=== PATIENT | female | born 1990 | race Caucasian/White ===

== ENCOUNTER 2019-04-03 18:30 | Emergency (ER) | payer OTHER, MEDICAID, SELFPAY ==
[2019-04-03 18:32] VITALS: BP 110/72; PULSE 98; RESP 14; TEMP 36.7; O2SAT 96
--- NOTE | 2019-04-03 18:57 | PC.NURSE ---
small insect bite w/ raised area < 0.5 cm round on left inner thigh. + increased vascular markings but no redness extending from insect bite. Denies pain / chills.
--- NOTE | 2019-04-03 19:14 | ED.SKABFB ---
HPI - Skin/Abscess/Foreign Bdy <EDWIN MontenegroBC - Last Filed: 04/03/19 21:41> General Chief complaint: Skin/Abscess/Foreign Body Stated complaint: bug bite Time Seen by Provider: 04/03/19 18:44 Source: patient Mode of arrival: ambulatory Limitations: no limitations History of Present Illness HPI narrative: The patient is a 28-year-old female nonsmoker with history of anxiety who presents with a chief complaint of an infected ?bug bite. She states she noticed a pustule on her left thigh a few days ago, and popped it. It reappeared again so she popped it again then she noted extending redness and lines of redness from the pustule site. She denies any fevers nausea vomiting or diarrhea. She has not taken anything or applied anything. She is concerned about infection. Related Data Home Medications Medication Instructions Recorded Confirmed albuterol sulfate HFA 90 2 puff INHALATION Q6H PRN 02/01/19 03/31/19 mcg/actuation aerosol inhaler bupropion HCl SR 150 mg tablet,12 150 mg PO DAILY 03/31/19 03/31/19 hr sustained-release Previous Rx's Medication Instructions Recorded diazepam 5 mg tablet 5 mg PO ONCE #1 tab 03/21/19 clonazepam 0.5 mg tablet 0.5 mg PO BID #5 tab 03/31/19 escitalopram 5 mg tablet 5 mg PO DAILY #30 tab 03/31/19 cephalexin 500 mg PO TID #30 cap 04/03/19 Allergies Allergy/AdvReac Type Severity Reaction Status Date / Time peanut Allergy Severe Anaphylaxis Verified 04/03/19 18:36 Penicillins Allergy Severe Anaphylaxis Verified 04/03/19 18:36 Review of Systems <EDWIN Montenegro - Last Filed: 04/03/19 21:41> Review of Systems GENERAL: Denies chills, fatigue, malaise, fever, sweats. HEENT: Denies sinus pain, ear pain, sore throat, difficulty swallowing, dizziness. RESPIRATORY: Denies dyspnea, cough, wheezing, hemoptysis, sputum. CARDIOVASCULAR: Denies chest pain, palpitations, orthopnea, edema, GASTROINTESTINAL: Denies nausea, vomiting, abdominal pain, diarrhea, constipation, melena. : Denies dysuria, frequency, incontinence, hematuria, urinary retention. MUSCULOSKELETAL: denies weakness, joint pain, or bony pain SKIN: See HPI NEUROLOGIC: Denies weakness, headache, numbness, change in speech, confusion, seizures, incoordination. PSYCHIATRIC: No concerning psychosocial issues. 12 point review of systems is negative except for those stated above PFSH <TRUPTI Montenegro - Last Filed: 04/03/19 21:41> Social History Smoking Status: Never smoker Exam <TRUPTI Montenegro - Last Filed: 04/03/19 21:41> Narrative Exam Narrative: GENERAL: This is a well-nourished, well-developed patient, in no acute distress HEAD: Atraumatic. Normocephalic. No temporal or scalp tenderness. EYES: Pupils equal round and reactive. Extraocular motions intact. No scleral icterus. No injection or drainage. ENT: Nose without bleeding, purulent drainage or septal hematoma. Throat without erythema, tonsillar hypertrophy or exudate. Uvula midline. Airway patent. NECK: Trachea midline. No JVD or lymphadenopathy. Supple, nontender, no meningeal signs. CARDIOVASCULAR: Regular rate and rhythm RESPIRATORY: No cough. No increased respiratory effort. No accessory muscle use. EXTREMITIES: Positive pedal pulses. BACK: Nontender without deformity or crepitance. No flank tenderness. NEURO: AOx3. Using all extremities equally. SKIN: Four mm pustule site noted medial aspect of left thigh. Surrounded by 2 cm of erythema on all sides. Three lines of extending redness extending four cm from erythema Initial Vital Signs Initial Vital Signs: Vital Signs Temperature 98.1 F 04/03/19 18:32 Pulse Rate 98 H 04/03/19 18:32 Respiratory Rate 14 04/03/19 18:32 Blood Pressure 110/72 04/03/19 18:32 Pulse Oximetry 96 04/03/19 18:32 <Alec Soni DO - Last Filed: 04/04/19 01:31> Initial Vital Signs Initial Vital Signs: Vital Signs Temperature 98.1 F 04/03/19 18:32 Pulse Rate 98 H 04/03/19 18:32 Respiratory Rate 14 04/03/19 18:32 Blood Pressure 110/72 04/03/19 18:32 Pulse Oximetry 96 04/03/19 18:32 Course <TRUPTI Montenegro - Last Filed: 04/03/19 21:41> Vital Signs - 8 hr 04/03/19 18:32 Temperature 98.1 F Pulse Rate 98 H Respiratory Rate 14 Blood Pressure 110/72 Pulse Oximetry 96 <Alec Soni DO - Last Filed: 04/04/19 01:31> Vital Signs - 8 hr 04/03/19 18:32 Temperature 98.1 F Pulse Rate 98 H Respiratory Rate 14 Blood Pressure 110/72 Pulse Oximetry 96 MDM - Skin/Abscess/Foreign Bdy <ALISON Montenegro- - Last Filed: 04/03/19 21:41> MDM Narrative Medical decision making narrative: The patient is a 28-year-old female who presents with a chief complaint of possible infection. Exam raises clinical concern for cellulitis, however she does not have any signs of systemic illness. The cell initiate treatment with cephalexin. Of note the patient states she has a penicillin allergy. However she has taken cephalexin before and states she tolerates it well. She does not use IV drugs or have diabetes. I did encourage her to follow up with primary care provider come back to emergency department for any acute concerns. Discussed monitor for fever vomiting diarrhea cetera. No questions or concerns on discharge Discharge Plan Departure Patient Disposition: Home Clinical Impression: Cellulitis Qualifiers: Site of cellulitis: extremity Site of cellulitis of extremity: lower extremity Laterality: left Qualified Code(s): L03.116 - Cellulitis of left lower limb Discharge Date/Time: 04/03/19 19:28 Interventions: ED Discharge Assessment Last Done: 04/03/19 19:27 Instructions: DI for Cellulitis -- Adult Activity Restrictions/Additional Instructions: I have given you an antibiotic for the signs of infection from your wound. Please monitor for fever diarrhea or vomiting as these are signs for worsening infection. I have chosen this antibiotic as you state that you have tolerated it well before. Be aware that people who are allergic to amoxicillin can be allergic to the medication as well. If you have any signs of allergic reaction, stop use immediately. Come back to the emergency department for any acute concerns such as allergic reaction, chest pain shortness of breath etc Prescriptions: New cephalexin 500 mg capsule 500 mg PO TID Qty: 30 RF: 0 No Action diazepam [Valium] 5 mg tablet 5 mg PO ONCE Qty: 1 RF: 0 bupropion HCl [Wellbutrin SR] 150 mg tablet sustained-release 12 hr 150 mg PO DAILY RF: 0 clonazepam 0.5 mg tablet 0.5 mg PO BID Qty: 5 RF: 0 escitalopram oxalate [Lexapro] 5 mg tablet 5 mg PO DAILY Qty: 30 RF: 0 albuterol sulfate 90 mcg/actuation HFA aerosol inhaler 2 puff INHALATION Q6H PRNRF: 0 Referrals: Rudy Brown MD [Primary Care Provider] - <Alec Soni DO - Last Filed: 04/04/19 01:31> Cosign ED Attending Dinoature Attestation: I was immediately available in the department for consultation. Documentation has been reviewed. I agree with assessment and plan.
== END 2019-04-03 19:28 | disposition home or self-care (01) ==
PROVIDERS: Emergency Provider Nurse Practitioner Family; PCP Family Medicine
DX: L03.116 Cellulitis of left lower limb (principal)
CPT/HCPCS: 99282; 99283

== ENCOUNTER 2019-04-27 11:36 | Emergency (ER) | payer OTHER, MEDICAID, SELFPAY ==
[2019-04-27 11:51] VITALS: BP 109/77; PULSE 106; RESP 20; TEMP 36.8; O2SAT 98; BMI 21.9
--- NOTE | 2019-04-27 12:58 | ED_ITS ---
HPI - Back Pain/Injury General Chief Complaint: Back Pain/Injury Stated Complaint: lower back pain from lifting a bike Time Seen by Provider: 04/27/19 12:08 Source: patient and family () Mode of arrival: ambulatory Limitations: no limitations History of Present Illness HPI Narrative: 28-year-old female comes emergency department with complaint of low back pain radiating down her right buttock into her leg. Patient states that she lifted her son's bike, she states it probably weighs 30 lb. She states she lifted with proper form. Put on the back of their car. Immediately had pain went to a squatting position and then had to sit down. She states the pain is sort of the right side of her sacrum, and radiates into the buttock and lower leg. She has a little bit of pain on the right side of her back. Patient states no weakness, no numbness. Standing is more comfortable than sitting. Sitting directly is more uncomfortable. Patient has had back issues in the past but mostly upper back. She normally sees a chiropractor. She states she has not had a lot issues with her lower back. She states otherwise healthy, denies any surgeries. Denies any allergies to medications. She does not want any altering medications today in the department but does ask for a prescription. Related Data Home Medications Medication Instructions Recorded Confirmed albuterol sulfate HFA 90 2 puff INHALATION Q6H PRN 02/01/19 03/31/19 mcg/actuation aerosol inhaler bupropion HCl SR 150 mg tablet,12 150 mg PO DAILY 03/31/19 04/27/19 hr sustained-release epinephrine 0.3 ml IM PRN PRN 04/27/19 04/27/19 Previous Rx's Medication Instructions Recorded diazepam 5 mg tablet 5 mg PO ONCE #1 tab 03/21/19 clonazepam 0.5 mg tablet 0.5 mg PO BID #5 tab 03/31/19 escitalopram 5 mg tablet 5 mg PO DAILY #30 tab 03/31/19 diazepam [Valium] 5 mg PO TID PRN #10 tab 04/27/19 hydrocodone-acetaminophen [[place]] 1 tab PO Q6H PRN #10 tab 04/27/19 meloxicam [Mobic] 7.5 mg PO BID #20 tab 04/27/19 Allergies Allergy/AdvReac Type Severity Reaction Status Date / Time peanut Allergy Severe Anaphylaxis Verified 04/03/19 18:36 Penicillins Allergy Severe Anaphylaxis Verified 04/03/19 18:36 Review of Systems Review of Systems ROS Unobtainable: All systems reviewed & are unremarkable except as noted in HPI and below Constitutional Denies chills, Denies fever(s), Denies lethargy and Denies weakness ENT Ears, Nose, Mouth, and Throat: Denies neck pain Musculoskeletal Reports as per HPI, Reports back pain, Reports limited range of motion, Denies neck pain, Denies numbness, Denies stiffness and Denies tingling Neurologic Denies numbness, Denies tingling and Denies weakness PFSH Social History Smoking Status: Never smoker Social History Smoking Status: Never smoker Exam Narrative Exam Narrative: GENERAL: Alert and oriented x three, well-nourished, well- appearing female in [id number] distress. HEENT: Head normocephalic, atraumatic, EOMI, pupils reactive, face symmetric, moist mucous membranes NECK: Supple, full range of motion CARDIOVASCULAR: Regular rate and rhythm without murmurs, rubs or gallops. RESPIRATORY: Breath sounds equal bilaterally, no wheezes rales or rhonchi. ABDOMEN: Soft, nontender. Normoactive bowel sounds all 4 quadrants. No guarding or rebound, rigidity, no mass : No CVA tenderness EXTREMITIES: Normal range of motion, no clubbing or edema. Neurovascularly intact NEUROLOGICAL: Cranial nerves II through XII grossly intact. Moving all extremities SKIN: Warm, dry, no petechiae, no rashes or lesions. BACK: No cervical, thoracic or lumbar vertebral point tenderness. Patient has decreased range of motion. Patient's gait is antalgic. Rectal exam is deferred. Muscle strength is 5/5 in lower extremities. Dorsalis pedis and tibialis pulses are 2+ and lower extremities. Sensation is intact in the lower extremities. Initial Vital Signs Initial Vital Signs: Vital Signs Temperature 98.2 F 04/27/19 11:51 Pulse Rate 106 H 04/27/19 11:51 Respiratory Rate 04/27/19 11:51 Blood Pressure 109/77 04/27/19 11:51 Pulse Oximetry 98 04/27/19 11:51 Course Orders Ordered: Discontinued Medications Diazepam (Valium) 5 mg PO NOW ONE Stop: 04/27/19 13:41 Last Admin: 04/27/19 13:44 Dose: 5 mg Ketorolac Tromethamine (Toradol) 60 mg IM NOW ONE Stop: 04/27/19 12:19 Last Admin: 04/27/19 13:04 Dose: 60 mg Morphine Sulfate (Morphine) 4 mg IM NOW ONE Stop: 04/27/19 15:06 Last Admin: 04/27/19 15:20 Dose: 4 mg Ondansetron HCl (Zofran Odt) 4 mg SL NOW ONE Stop: 04/27/19 13:28 Last Admin: 04/27/19 13:29 Dose: 4 mg Vital Signs - 8 hr 04/27/19 11:51 04/27/19 15:33 Temperature 98.2 F Pulse Rate 106 H 86 Respiratory Rate 20 19 Blood Pressure 109/77 Blood Pressure [Left Arm] 107/72 Pulse Oximetry 98 99 MDM - Back Pain/Injury MDM Narrative Medical decision making narrative: Discussed with patient she had acute injury lifting the bike that is likely the cause of her back pain. We discussed potential causes. She has no red flag symptoms indicating the need for imaging at this time. Discussed will do a dose of Toradol, plan for pain control as well some muscle relaxant. If she is not improving she is to return to follow up with PCP, patient is to return here or closest ER if any red flag symptoms. Patient had only mild improvement with Toradol and Valium. Given Morphine IM and feels much better. Discharge Plan Departure Patient Disposition: Home Clinical Impression: Back pain Qualifiers: Back pain location: low back pain Chronicity: acute Back pain laterality: right Sciatica presence: with sciatica Discharge Date/Time: 04/27/19 15:58 Interventions: ED Discharge Assessment Last Done: 04/27/19 15:52 Instructions: DI for Back Pain With Sciatica Activity Restrictions/Additional Instructions: Follow-up with primary care in the next 7-10 days if symptoms are not improved. You may take pain medication/mobic 1 tablet every 12 hours as needed. You may also take Tylenol up to a 1000 mg every 8 hours with this medication. You may take the muscle relaxant with either of these medications, this medication will make you sleepy do not drive, perform has activities or make any major decisions while taking it. Return to the emergency department for fevers greater than 100.4 F new weakness, numbness, loss of bowel or bladder control, rapidly worsening pain, passing out, new chest pain, shortness of breath or abdominal pain. Prescriptions: New diazepam [Valium] 5 mg tablet 5 mg PO TID PRN (Reason: muscle spasm) Qty: 10 RF: 0 meloxicam [Mobic] 7.5 mg tablet 7.5 mg PO BID Qty: 20 RF: 0 hydrocodone-acetaminophen [[place]] 5-325 mg tablet 1 tab PO Q6H PRN (Reason: pain) Qty: 10 RF: 0 No Action diazepam [Valium] 5 mg tablet 5 mg PO ONCE Qty: 1 RF: 0 bupropion HCl [Wellbutrin SR] 150 mg tablet sustained-release 12 hr 150 mg PO DAILY RF: 0 clonazepam 0.5 mg tablet 0.5 mg PO BID Qty: 5 RF: 0 escitalopram oxalate [Lexapro] 5 mg tablet 5 mg PO DAILY Qty: 30 RF: 0 epinephrine 0.3 mg/0.3 mL auto-injector 0.3 ml IM PRN PRN (Reason: Allergic Reaction) RF: 0 albuterol sulfate 90 mcg/actuation HFA aerosol inhaler 2 puff INHALATION Q6H PRN (Reason: Shortness Of Breath) RF: 0 Referrals: Rudy Brown MD [Primary Care Provider] -
[2019-04-27] MEDS: KETOROLAC 60 MG/2 ML VIAL IM (13:04)
[2019-04-27] MEDS: ONDANSETRON 4 MG ODT SL (13:29)
[2019-04-27] MEDS: diazePAM 5 MG TABLET PO (13:44)
[2019-04-27] MEDS: MORPHINE 4 MG/ML INJ IM (15:20)
[2019-04-27 15:33] VITALS: BP 107/72; PULSE 86; RESP 19; O2SAT 99
== END 2019-04-27 15:58 | disposition home or self-care (01) ==
PROVIDERS: Emergency Provider Emergency Medicine; PCP Family Medicine
DX: M54.9 Dorsalgia, unspecified (principal); X50.9XXA Other and unspecified overexertion or strenuous movements or postures, initial encounter
CPT/HCPCS: 96372; 99282; 99283; J1885; J2270

== ENCOUNTER → 2020-08-13 16:30 | Outpatient (CLI) | payer OTHER, MEDICAID, SELFPAY ==
[2020-08-13 18:06] LABS: Add Manual Diff / Slide Review NO; Basophils Absolute Auto 100 /uL (0-100); Basophils Percent Auto 0.8 % (0-2); Eosinophils Absolute Auto 200 /uL (0-450); Eosinophils Percent Auto 3.5 % (2-4); Hematocrit 38.8 % (36-46); Hemoglobin 13.4 g/dL (12.0-16.0); Lymphocytes Absolute Auto 2300 /uL (1100-4500); Lymphocytes Percent Auto 39.4 % (25-40); Mean Corpuscular HGB Conc 34.5 % (30-36); Mean Corpuscular Hemoglobin 29.8 PG (26-34); Mean Corpuscular Volume 86.5 fL (80-100); Monocytes Absolute Auto 500 /uL (0-900); Monocytes Percent Auto 8.9 % (3-14); Neutrophils Absolute Auto 2800 /uL (1500-7000); Neutrophils Percent Auto 47.4 % (50-75); Platelet Count 168 X10^3/uL (150-400); Red Blood Cell Count 4.49 X10^6/uL (4.0-5.2); Red Cell Distribution Width 12.6 % (11.6-14.8)
[2020-08-13 18:41] LABS: TSH w/ Reflex to FT4 0.81 uIU/mL (0.47-4.68)
== END ==
PROVIDERS: PCP Registered Nurse Diabetes Educator; Referring Provider Registered Nurse Diabetes Educator; Visit Provider Registered Nurse Diabetes Educator
DX: R53.83 Other fatigue (principal)
CPT/HCPCS: 36415; 84443; 85025

== ENCOUNTER 2021-07-16 16:50 | Emergency (ER) | payer OTHER, MEDICAID, SELFPAY ==
[2021-07-16 16:59] VITALS: BP 132/92; PULSE 122; RESP 20; TEMP 37.1; O2SAT 99; BMI 23.0
--- NOTE | 2021-07-16 17:03 | DI.RAD.S_ITS ---
PROCEDURE: XR CHEST 1V INDICATIONS: cough/congestion TECHNIQUE: One view of the chest was acquired. COMPARISON: None. FINDINGS: Surgical changes and devices: None. Lungs and pleura: Lungs are clear. No pleural effusions or pneumothorax. Mediastinum: Mediastinal contours appear normal. Heart size is normal. Bones and chest wall: No suspicious bony lesions. Overlying soft tissues appear unremarkable. Convex right thoracic scoliosis noted., mild. IMPRESSION: No acute cardiopulmonary findings Approved by: Ced Higuera M.D. on 07/16/2021 at 17:42
[2021-07-16 17:29] LABS: COVID19 -Nasal RAPID POSITIVE (Negative)
[2021-07-16 17:38] LABS: Appearance Urine UA CLEAR; Bilirubin Urine UA NEGATIVE (NEGATIVE); Color Urine UA YELLOW; Glucose Urine UA NEGATIVE (Negative); Ketones Urine UA NEGATIVE (NEGATIVE); Leukocyte Esterase Urine UA TRACE (NEGATIVE); Nitrite Urine UA NEGATIVE (Negative); Occult Blood Urine UA NEGATIVE (Negative); Protein Urine UA NEGATIVE (Negative); Specific Gravity Urine UA 1.015 (1.000-1.035); Urobilinogen Urine UA 0.2 E.U./dL (0.2)
[2021-07-16 17:42] LABS: Pregnancy Test Urine Negative (Negative)
[2021-07-16] MEDS: HYDROCODONE/ACET 5/325 TABLET 1 TAB PO (17:50)
[2021-07-16 17:58] LABS: Bacteria Urine Moderate (10-30); Culture Indicated Urine Cult Not Indicated; RBC Urine 0-1/HPF (0-5/HPF); Squamous Epithelial Cell Urine 5-10 /HPF (0-5/HPF); WBC Urine 1-5/HPF (0-5/HPF)
[2021-07-16 19:06] VITALS: PULSE 87; O2SAT 97
--- NOTE | 2021-07-16 19:47 | ED_ITS ---
HPI - URI/Sore Throat <Arron Oscar PA-C - Last Filed: 07/16/21 19:53> General Chief Complaint: Upper Respiratory Symptoms Stated Complaint: whole body hurts Time Seen by Provider: 07/16/21 17:38 History of Present Illness HPI Narrative: 30-year-old female with depression, anxiety presents to the ED with 3 days of all over body aches. Patient denies fever, chills, headaches, chest pain, shortness of breath, nausea, vomiting, abdominal pain, dysuria, lightheadedness, syncope, dizziness. Patient is unvaccinated for COVID-19. Patient denies exposure to COVID-19 exposure. Patient states that her body pain is refractive to ibuprofen. Related Data Home Medications Medication Instructions Recorded Confirmed albuterol sulfate 90 mcg/actuation 2 puff INHALATION Q6H PRN 02/01/19 08/13/20 aerosol inhaler epinephrine 0.3 mg/0.3 mL 0.3 ml IM PRN PRN 04/27/19 08/13/20 injection, auto-injector IUD INTRAUTERINE 05/23/20 08/13/20 Previous Rx's Medication Instructions Recorded venlafaxine 37.5 mg 37.5 mg PO DAILY #30 cap 08/13/20 capsule,extended release 24 hr Allergies Allergy/AdvReac Type Severity Reaction Status Date / Time peanut Allergy Severe Anaphylaxis Verified 08/13/20 15:53 Penicillins Allergy Severe Anaphylaxis Verified 08/13/20 15:53 Review of Systems <SOFIE Sosa Last Filed: 07/16/21 19:53> Constitutional Constitutional: Reports body ache(s), Denies chills, Denies fatigue, Denies fever(s), Denies frequent falls, Denies lethargy and Denies weakness Eyes Eyes: Denies change in vision, Denies eye discharge, Denies irritation and Denies loss of vision ENT Ears, Nose, Mouth, and Throat: Denies change in voice, Denies dizziness, Denies neck pain, Denies sore throat and Denies throat swelling Cardiovascular Cardiovascular: Denies chest pain, Denies irregular heart rhythm, Denies lightheadedness, Denies palpitations, Denies dyspnea, Denies dyspnea on exertion and Denies orthopnea Respiratory Respiratory: Denies cough, Denies dyspnea, Denies dyspnea on exertion and Denies wheezing Gastrointestinal Gastrointestinal: Denies abdominal pain, Denies change in bowel habits, Denies diarrhea, Denies nausea and Denies vomiting Musculoskeletal Musculoskeletal: Denies neck pain and Denies numbness Integumentary/Breasts Skin/Breast: Denies pruritus, Denies erythema, Denies rash and Denies wounds Neurologic Neurologic: Denies behavioral changes, Denies confusion, Denies dizziness, Den ies frequent falls, Denies loss of vision, Denies numbness and Denies weakness Psychiatric Psychiatric: Denies anxiety, Denies behavioral changes, Denies confusion, Denies depression, Denies homicidal ideation and Denies suicidal ideation Endocrine Endocrine: Denies fatigue, Denies flushing and Denies palpitations Hematologic/Lymphatic Hematologic/Lymphatic: Denies easy bruising Allergic/Immunologic Allergic/Immunologic: Denies urticaria, Denies throat swelling and Denies wheezing Patient History <Arron Oscar PA-C - Last Filed: 07/16/21 19:53> Medical History Anxiety Depression Social History Smoking Status: Never smoker Smoking Status: Never smoker alcohol intake frequency: 0-2 drinks per day Substance Use Type: does not use Exam <Arron Oscar PA-C - Last Filed: 07/16/21 19:53> Initial Vital Signs Initial Vital Signs: Vital Signs Temperature 98.8 F 07/16/21 16:59 Pulse Rate 122 H 07/16/21 16:59 Respiratory Rate 20 07/16/21 16:59 Blood Pressure 132/92 H 07/16/21 16:59 Pulse Oximetry 99 07/16/21 16:59 Const General: cooperative [facility] Head: normocephalic and atraumatic Ears: external ears normal and TM's normal bilaterally Nose: external nose normal and No nasal discharge Face and sinus: sinuses nontender, face symmetric, no sinus tenderness and No dry mucous membranes Mouth: oral mucosae normal and moist mucous membranes Teeth and gingiva: dentition normal Throat: tonsils normal and uvula midline Eyes General: appearance normal, both eyes and all related structures Eyelids: eyelids normal Conjunctivae: conjunctivae normal Sclera: sclerae normal Pupils: PERRL EOM: EOM intact bilaterally Neck Neck: normal visual inspection, trachea midline, No lymphadenopathy, No midline deformity and No JVD Lymphatic: No lymphedema Chest Chest: normal inspection of the chest Resp Effort & Inspection: normal respiratory effort, able to speak in complete sentences, no respiratory distress and no use of accessory muscles Auscultation: clear to auscultation bilaterally, no rales, no rhonchi and no wheezes Cardio Rate: regular rate Rhythm: regular rhythm Heart Sounds: no click, no gallops, no murmurs and no rubs Pulses: normal peripheral pulses GI Inspection: non-distended Palpation: soft, no hepatosplenomegaly, No guarding, No pulsatile mass and No tender Auscultation: normal bowel sounds Back/Spine/Pelvis Back: No CVA tenderness Cervical Spine: cervical ROM normal and No pain with cervical ROM Thoracic/Lumbar Spine: thoracic and lumbar spine normal to inspection Skin General: no rashes or lesions noted, No jaundice and No petechiae Neuro General: patient alert, patient oriented x3, gait normal and no focal motor deficits Speech: speech normal Extrem General: full ROM, no clubbing, cyanosis or edema, no pedal edema and no calf tenderness Psych Appearance: well kempt Mental Status: mental status grossly normal Attitude: cooperative Thought Content: normal and suicidality Judgment: judgment good <Esme Maciel MD - Last Filed: 07/22/21 05:46> Initial Vital Signs Initial Vital Signs: Vital Signs Temperature 98.8 F 07/16/21 16:59 Pulse Rate 122 H 07/16/21 16:59 Respiratory Rate 20 07/16/21 16:59 Blood Pressure 132/92 H 07/16/21 16:59 Pulse Oximetry 99 07/16/21 16:59 Course <Arron Oscar PA-C - Last Filed: 07/16/21 19:53> Course Course Narrative: Patient's symptoms markedly improved with Lane. Patient was counseled regarding COVID-19 infection, isolation. Discharge home with ED return precautions. Orders Ordered: Discontinued Medications Hydrocodone Bitart/Acetaminophen (Hydrocodone/Acet 5/325 Tablet) 1 tab PO NOW ONE Stop: 07/16/21 17:41 Last Admin: 07/16/21 17:50 Dose: 1 tab Documented by: ELA Vital Signs Vital signs: Vital Signs - 8 hr 07/16/21 16:59 07/16/21 19:06 Temperature 98.8 F Pulse Rate 122 H 87 Respiratory Rate 20 Blood Pressure 132/92 H Pulse Oximetry 99 97 <Esme Maciel MD - Last Filed: 07/22/21 05:46> Orders Ordered: Discontinued Medications Hydrocodone Bitart/Acetaminophen (Hydrocodone/Acet 5/325 Tablet) 1 tab PO NOW ONE Stop: 07/16/21 17:41 Last Admin: 07/16/21 17:50 Dose: 1 tab Documented by: ELA Vital Signs Vital signs: Vital Signs - 8 hr 07/16/21 16:59 07/16/21 19:06 Temperature 98.8 F Pulse Rate 122 H 87 Respiratory Rate 20 Blood Pressure 132/92 H Pulse Oximetry 99 97 MDM - URI/Sore Throat <Arron Oscar PA-C - Last Filed: 07/16/21 19:53> Medical Records Attestation: I reviewed the patient's medical records. Lab Data Attestation: I reviewed the patient's lab results. Lab results narrative: COVID-19 positive. Negative HCG, negative UA Labs: Lab Results 07/16/21 07/16/21 07/16/21 Range/Units 17:04 17:08 17:08 Urine Color Yellow Urine Appearance Clear Urine pH 6.0 (4.5-8.0) Ur Specific [place] 1.015 (1.000-1.035) Urine Protein Negative (Negative) Urine Glucose (UA) Negative (Negative) g/dL Urine Ketones Negative (NEGATIVE) Urine Occult Blood Negative (Negative) Urine Nitrate Negative (Negative) Urine Bilirubin Negative (NEGATIVE) Urine Urobilinogen 0.2 (0.2) E.U./dL Ur Leukocyte Esterase Trace H (NEGATIVE) Urine RBC 0-1/hpf (0-5/HPF) Urine WBC 1-5/hpf (0-5/HPF) Ur Squamous Epith Cells 5-10 /hpf H (0-5/HPF) Urine Bacteria Moderate (10-30) H (None) Ur Culture Indicated? Cult not indicated Urine Test Negative (Negative) SARS-CoV-2 (PCR) Positive H (Negative) Imaging Data Chest x-ray: Radiologist's Impression: PROCEDURE:? XR CHEST 1V ? INDICATIONS:? cough/congestion ? TECHNIQUE:? One view of the chest was acquired.? ? COMPARISON:? None. ? FINDINGS:? ? Surgical changes and devices:? None.? ? Lungs and pleura:? Lungs are clear.? No pleural effusions or pneumothorax.? ? Mediastinum:? Mediastinal contours appear normal.? Heart size is normal.? ? Bones and chest wall:? No suspicious bony lesions.? Overlying soft tissues appear unremarkable.? Convex right thoracic scoliosis noted., mild. ? IMPRESSION:? No acute cardiopulmonary findings ? ? ? Approved by: Ced Higuera M.D. on 07/16/2021 at 17:42? MDM Narrative Medical decision making narrative: 30-year-old female with depression, anxiety presents to the ED with 3 days of all over body aches. Concern for COVID 19 infection versus other viral syndrome. Will order COVID-19 test. Will treat pain with Lane. Will reassess. Dispo home with ED return precautions. <Esme Maciel MD - Last Filed: 07/22/21 05:46> Lab Data Labs: Lab Results 07/16/21 07/16/21 07/16/21 Range/Units 17:04 17:08 17:08 Urine Color Yellow Urine Appearance Clear Urine pH 6.0 (4.5-8.0) Ur Specific [place] 1.015 (1.000-1.035) Urine Protein Negative (Negative) Urine Glucose (UA) Negative (Negative) g/dL Urine Ketones Negative (NEGATIVE) Urine Occult Blood Negative (Negative) Urine Nitrate Negative (Negative) Urine Bilirubin Negative (NEGATIVE) Urine Urobilinogen 0.2 (0.2) E.U./dL Ur Leukocyte Esterase Trace H (NEGATIVE) Urine RBC 0-1/hpf (0-5/HPF) Urine WBC 1-5/hpf (0-5/HPF) Ur Squamous Epith Cells 5-10 /hpf H (0-5/HPF) Urine Bacteria Moderate (10-30) H (None) Ur Culture Indicated? Cult not indicated Urine Test Negative (Negative) SARS-CoV-2 (PCR) Positive H (Negative) Discharge Plan Departure Patient Disposition: Home Clinical Impression: COVID-19 Instructions: DI for COVID-19 (Suspected or Confirmed ), Coronavirus Disease 2019, Can COVID-19 be prevented? Activity Restrictions/Additional Instructions: You were diagnosed positive for the COVID-19 infection in the ED today. Your vital signs are stable and you can continue to take ibuprofen or Tylenol for your symptoms. Continue to mask and isolate for 10-14 days. Return to the ED if worsening symptoms including shortness of breath, chest pain. Prescriptions: No Action IUD intrauterine RF: 0 venlafaxine 37.5 mg capsule,extended release 24hr 37.5 mg PO DAILY Qty: 30 RF: 1 epinephrine 0.3 mg/0.3 mL auto-injector 0.3 ml IM PRN PRN (Reason: Allergic Reaction) RF: 0 albuterol sulfate 90 mcg/actuation HFA aerosol inhaler 2 puff INHALATION Q6H PRN (Reason: Shortness Of Breath) RF: 0 Referrals: Rudy Brown MD [Primary Care Provider] - <Esme Maciel MD - Last Filed: 07/22/21 05:46> Cosign ED Attending Cosdongature Attestation: I was immediately available in the department for consultation throughout this patient's visit. I agree with documentation as above. Esme Maciel MD
== END 2021-07-16 19:06 | disposition home or self-care (01) ==
PROVIDERS: Emergency Medicine; Emergency Provider Student in an Organized Health Care Education/Training Program; PCP Family Medicine
DX: U07.1 COVID-19 (principal)
CPT/HCPCS: 71045; 81001; 81025; 87635; 99283; C9803

== ENCOUNTER 2023-06-30 08:42 | Emergency (ER) | payer OTHER, MEDICAID, SELFPAY ==
[2023-06-30] VITALS (7 sets, daily range): BP systolic 106–138; BP diastolic 66–79; PULSE 73–101; RESP 18; TEMP 36.7; O2SAT 99–100; BMI 20.3
--- NOTE | 2023-06-30 09:07 | ED_ITS ---
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 She had been feeling fine until this morning when she felt nauseated and flushed with an elevated heart rate upon standing. She denies any vaginal bleeding or discharge. She has no runny nose, sore throat or cough. She denies chest pain or shortness of breath. She denies abdominal pain but has some cramping in her low back. Related Data Home Medications Medication Instructions Recorded Confirmed albuterol sulfate 90 mcg/actuation 2 puff inhalation Q6H PRN 02/01/19 08/13/20 aerosol inhaler Shortness Of Breath epinephrine 0.3 mg/0.3 mL 0.3 ml IM PRN PRN Allergic Reaction 04/27/19 08/13/20 injection, auto-injector IUD intrauterine 05/23/20 08/13/20 Previous Rx's Medication Instructions Recorded venlafaxine 37.5 mg 37.5 mg PO DAILY #30 caps 08/13/20 capsule,extended release 24 hr Allergies Allergy/AdvReac Type Severity Reaction Status Date / Time peanut Allergy Severe Anaphylaxis Verified 08/13/20 15:53 Penicillins Allergy Severe Anaphylaxis Verified 08/13/20 15:53 Review of Systems Review of Systems Narrative: GENERAL: See HPI HEENT: Denies sinus pain, ear pain, sore throat, difficulty swallowing, dizzin ess. RESPIRATORY: Denies dyspnea, cough, wheezing, hemoptysis, sputum. CARDIOVASCULAR: Denies chest pain, palpitations, orthopnea, edema, GASTROINTESTINAL: See HPI : See HPI MUSCULOSKELETAL: denies weakness, joint pain, or bony pain SKIN: Denies rash, skin lesions, or other NEUROLOGIC: Denies weakness, headache, numbness, change in speech, confusion, seizures, incoordination. PSYCHIATRIC: No concerning psychosocial issues. 12 point review of systems is negative except for those stated above Patient History Medical History (Updated 06/30/23 @ 12:46 by Alec Soni DO) Anxiety Depression Social History Smoking Status: Never smoker Smoking Status: Never smoker alcohol intake frequency: 0-2 drinks per day Substance Use Type: does not use Exam Narrative Exam Narrative: GENERAL: [32] year old patient appears stated age. Well-developed patient, in mild distress. HEAD: Atraumatic. Normocephalic. EYES: Pupils equal round and reactive. Extraocular motions intact. No scleral icterus. No injection or drainage. ENT: Nose without bleeding, purulent drainage. Throat without erythema, tonsillar hypertrophy or exudate. Airway patent. NECK: Trachea midline. Non tender CARDIOVASCULAR: Regular rate and rhythm without murmurs, gallops, or rubs. RESPIRATORY: Clear to auscultation. Breath sounds equal bilaterally. No wheezes, rales, or rhonchi. GASTROINTESTINAL: Abdomen soft, non-tender, nondistended. EXTREMITIES: No edema or joint tenderness. BACK: Nontender without deformity or crepitance. No flank tenderness. NEURO: AOx3. SKIN: No rash or erythema of visible areas Initial Vital Signs Initial Vital Signs: Vital Signs Temperature 98.1 F 06/30/23 09:00 Pulse Rate 101 H 06/30/23 09:00 Respiratory Rate 18 06/30/23 09:00 Blood Pressure 138/79 06/30/23 09:00 Pulse Oximetry 99 06/30/23 09:00 Oxygen Delivery Method Room Air 06/30/23 09:00 Course Orders Ordered: Discontinued Medications Sodium Chloride (Normal Saline 0.9%) 1,000 mls @ 1,000 mls/hr IV BOLUS ONE Stop: 06/30/23 10:28 Last Infusion: 06/30/23 10:45 Dose: 0 mls/hr Documented By: Admin: 06/30/23 09:45 Dose: 1,000 mls/hr Documented By: TOR Vital Signs Vital signs: Vital Signs - 8 hr 06/30/23 09:00 Temperature 98.1 F Pulse Rate 101 H Respiratory Rate 18 Blood Pressure 138/79 Pulse Oximetry 99 Oxygen Delivery Method Room Air Medical Decision Making Lab Data 06/30/23 09:40 06/30/23 09:40 Labs: Lab Results 06/30/23 06/30/23 06/30/23 Range/Units 09:40 09:40 09:40 WBC 4.5 (4.5-11.0) X10^3/uL RBC 4.75 (4.0-5.2) X10^6/uL Hgb 14.3 (12.0-16.0) g/dL Hct 40.7 (36-46) % MCV 85.6 (80-100) fL MCH 30.0 (26-34) PG MCHC 35.1 (30-36) % RDW 13.0 (11.6-14.8) % Plt Count 178 (150-400) X10^3/uL Neut % (Auto) 58.5 (50-75) % Lymph % (Auto) 28.4 (25-40) % Bond % (Auto) 11.2 (3-14) % Eos % (Auto) 1.2 L (2-4) % Baso % (Auto) 0.7 (0-2) % Neut # (Auto) 2700 (1789-2974) /uL Lymph # (Auto) 1300 (5926-1161) /uL Bond # (Auto) 500 (0-900) /uL Eos # (Auto) 100 (0-450) /uL Baso # (Auto) 0 (0-100) /uL Sodium 138 (137-145) mmol/L Potassium 3.9 (3.4-5.1) mmol/L Chloride 105 (98-107) mmol/L Carbon Dioxide 25 (22-32) mmol/L BUN 8 (7-17) mg/dL Creatinine 0.74 (0.52-1.04) mg/dL Estimated GFR > 60 (>60) mL/min BUN/Creatinine Ratio 10.8 (6-22) Glucose 97 (70-100) mg/dL Calcium 9.5 (8.4-10.2) mg/dL Magnesium 2.1 (1.6-2.3) mg/dL Total Bilirubin 0.9 (0.2-1.3) mg/dL AST 26 (14-36) IU/L ALT 18 (<35) IU/L Alkaline Phosphatase 56 (38-126) U/L Total Protein 8.1 (6.3-8.2) g/dL Albumin 4.6 (3.5-5.0) g/dL Globulin 3.5 (1.7-4.1) g/dL Albumin/Globulin Ratio 1.3 (1.0-2.8) Lipase 124 (23-300) U/L HCG, Quant 1697.7 mIU/mL SARS-CoV-2 (PCR) (Negative) Influenza A (RT-PCR) (NEGATIVE) Influenza B (RT-PCR) (NEGATIVE) RSV (PCR) (Negative) 06/30/23 Range/Units 09:45 WBC (4.5-11.0) X10^3/uL RBC (4.0-5.2) X10^6/uL Hgb (12.0-16.0) g/dL Hct (36-46) % MCV (80-100) fL MCH (26-34) PG MCHC (30-36) % RDW (11.6-14.8) % Plt Count (150-400) X10^3/uL Neut % (Auto) (50-75) % Lymph % (Auto) (25-40) % Bond % (Auto) (3-14) % Eos % (Auto) (2-4) % Baso % (Auto) (0-2) % Neut # (Auto) (5907-9842) /uL Lymph # (Auto) (6440-9464) /uL Bond # (Auto) (0-900) /uL Eos # (Auto) (0-450) /uL Baso # (Auto) (0-100) /uL Sodium (137-145) mmol/L Potassium (3.4-5.1) mmol/L Chloride (98-107) mmol/L Carbon Dioxide (22-32) mmol/L BUN (7-17) mg/dL Creatinine (0.52-1.04) mg/dL Estimated GFR (>60) mL/min BUN/Creatinine Ratio (6-22) Glucose (70-100) mg/dL Calcium (8.4-10.2) mg/dL Magnesium (1.6-2.3) mg/dL Total Bilirubin (0.2-1.3) mg/dL AST (14-36) IU/L ALT (<35) IU/L Alkaline Phosphatase (38-126) U/L Total Protein (6.3-8.2) g/dL Albumin (3.5-5.0) g/dL Globulin (1.7-4.1) g/dL Albumin/Globulin Ratio (1.0-2.8) Lipase (23-300) U/L HCG, Quant mIU/mL SARS-CoV-2 (PCR) Negative (Negative) Influenza A (RT-PCR) Flu a negative (NEGATIVE) Influenza B (RT-PCR) Flu b negative (NEGATIVE) RSV (PCR) Negative (Negative) Point of Care Testing Test Results Positive Urine Dip Bedside Urine Glucose Negative Bedside Urine Bilirubin - Negative Bedside Urine Ketone - Negative Urine Specific [place] 1.020 Bedside Urine Occult Blood - Negative Bedside Urine pH 6.0 Bedside Urine Protein - Negative Bedside Urine Urobilinogen - Negative Bedside Urine Nitrite - Negative Bedside Urine Leukocytes - Negative Esterase Point of care testing: Point of Care Testing Test Results Positive Urine Dip Bedside Urine Glucose Negative Bedside Urine Bilirubin - Negative Bedside Urine Ketone - Negative Urine Specific [place] 1.020 Bedside Urine Occult Blood - Negative Bedside Urine pH 6.0 Bedside Urine Protein - Negative Bedside Urine Urobilinogen - Negative Bedside Urine Nitrite - Negative Bedside Urine Leukocytes - Negative Esterase MDM Narrative Medical decision making narrative: [32] year old patient presents with nausea and flushed feeling, Multiple etiologies for patient's symptoms considered including, but not limited to: Electrolyte abnormality versus dehydration versus miscarriage versus other Prior Charts reviewed in our EMR Primary Historian: patient Labs reviewed and interpreted by myself: No significant abnormal findings Imaging reviewed: Intrauterine gestational sac without embryo Patient's symptoms improved over duration of stay with above-stated therapies. Findings and discharge diagnosis discussed with patient/family followed by verbalization of understanding Return precautions discussed with patient/family whom verbalize understanding of diagnosis and plan Discharge Plan Departure Patient Disposition: Home Clinical Impression: Feared complaint without diagnosis Activity Restrictions/Additional Instructions: *You have been diagnosed with [cramping in early . As we discussed your ultrasound demonstrates a gestational sac in the uterus, there is no evidence of an ectopic . Your HCG today was 1697 ] *What to do: *Please continue to take your regular medications as directed. *Please follow up with your primary OB provider in 2-3 days, call for an appointment. Let them know you were seen in the Emergency Department and that we ask that you be seen in follow up. We will electronically transmit a record of today's note if your PCP is in our system *Return to Emergency Department if you should have any new, worsening or con cerning symptoms, such as [fever greater than 101 F, shaking chills, worsening pain, persistent vomiting or other bothersome symptoms] Prescriptions: No Action IUD intrauterine venlafaxine 37.5 mg capsule,extended release 24hr 37.5 mg PO DAILY Qty: 30 1RF epinephrine 0.3 mg/0.3 mL auto-injector 0.3 ml IM PRN PRN (Reason: Allergic Reaction) albuterol sulfate 90 mcg/actuation HFA aerosol inhaler 2 puff INHALATION Q6H PRN (Reason: Shortness Of Breath) Referrals: Rudy Brown MD [Primary Care Provider] - Stand Alone Forms: Patient Portal/API
[2023-06-30] MEDS: SODIUM CHLORIDE 0.9% 1,000 ML 1000 ML IV (09:45)
[2023-06-30 09:48] LABS: Add Manual Diff / Slide Review NO; Basophils Absolute Auto 0 /uL (0-100); Basophils Percent Auto 0.7 % (0-2); Eosinophils Absolute Auto 100 /uL (0-450); Eosinophils Percent Auto 1.2 % (2-4); Hematocrit 40.7 % (36-46); Hemoglobin 14.3 g/dL (12.0-16.0); Lymphocytes Absolute Auto 1300 /uL (1100-4500); Lymphocytes Percent Auto 28.4 % (25-40); Mean Corpuscular HGB Conc 35.1 % (30-36); Mean Corpuscular Volume 85.6 fL (80-100); Monocytes Absolute Auto 500 /uL (0-900); Monocytes Percent Auto 11.2 % (3-14); Neutrophils Absolute Auto 2700 /uL (1500-7000); Neutrophils Percent Auto 58.5 % (50-75); Platelet Count 178 X10^3/uL (150-400); Red Blood Cell Count 4.75 X10^6/uL (4.0-5.2); White Blood Cell Count 4.5 X10^3/uL (4.5-11.0)
--- NOTE | 2023-06-30 10:12 | DI.US.S_ITS ---
PROCEDURE: US OB <= 14 WEEKS FETUS INDICATIONS: PELVIC PAIN - OUTSIDE/PRIOR DATING DATA: Last menstrual period (LMP): 05/31/23. LMP-based estimated date of delivery (REMA): 03/06/24. First dating scan (date and location): Today's exam. TECHNIQUE: Real-time scanning was performed of the fetus and maternal pelvic organs, with image documentation. Endovaginal scanning was also performed to better visualize the fetus and maternal ovaries. COMPARISON: None. FINDINGS: Intrauterine gestational sac, without embryo. Embryo: Not visualized. Heart rate: Not applicable. Maternal organs: Ovaries are unremarkable. IMPRESSION: Intrauterine gestational sac without embryo. We strive to produce accurate, complete, and clear reports of imaging services. To assist us in improving patient care, this report was composed using standard report templates and voice recognition software. Therefore, it may contain abnormal punctuation, insertions and/or omissions. Occasional wrong-word or sound-alike substitutions may occur. Though we review the report and make efforts to correct it, we do recommend that the report be read carefully in proper context to recognize any text inaccuracies. Dictated by: Wei Olivares M.D. on 06/30/2023 at 12:19 Approved by: Wei Olivares M.D. on 06/30/2023 at 12:29
[2023-06-30 10:14] LABS: Alanine Aminotransferase 18 IU/L (<35); Albumin 4.6 g/dL (3.5-5.0); Albumin Globulin Ratio 1.3 (1.0-2.8); Alkaline Phosphatase 56 U/L (38-126); Aspartate Aminotransferase 26 IU/L (14-36); BUN Creatinine Ratio 10.8 (6-22); Bilirubin Total 0.9 mg/dL (0.2-1.3); Blood Urea Nitrogen 8 mg/dL (7-17); Calcium 9.5 mg/dL (8.4-10.2); Carbon Dioxide 25 mmol/L (22-32); Chloride 105 mmol/L (98-107); Estimated Glomerular Filt Rate > 60 mL/min (>60); Globulin 3.5 g/dL (1.7-4.1); Glucose 97 mg/dL (70-100); HEMOLYSIS < 15 (0-50); Lipase 124 U/L (23-300); Potassium 3.9 mmol/L (3.4-5.1); Sodium 138 mmol/L (137-145); Total Protein 8.1 g/dL (6.3-8.2)
[2023-06-30 10:16] LABS: Magnesium 2.1 mg/dL (1.6-2.3)
[2023-06-30 10:29] LABS: HCG Quantitative /Beta subunit 1697.7 mIU/mL
[2023-06-30 10:38] LABS: Influenza A - CEPHEID Flu A NEGATIVE (NEGATIVE); Influenza B - CEPHEID Flu B NEGATIVE (NEGATIVE); Respiratory Syncytial Virus Negative (Negative)
[2023-06-30 10:42] LABS: COVID-19 CEPHEID 4-PLEX PCR Negative (Negative)
--- NOTE | 2023-06-30 11:19 | PC.NURSE ---
Pt states feeling a tejeda down my body and dizzy. Intermittent episodes of this with current . Reports dizziness has improved after IV fluids administered. Denies syncope. No vomiting, just nausea and decreased appetite. History of miscarriage.
== END 2023-06-30 13:02 | disposition home or self-care (01) ==
PROVIDERS: Emergency Provider Emergency Medicine; PCP Family Medicine
DX: O26.91 Pregnancy related conditions, unspecified, first trimester (principal); R00.2 Palpitations; Z20.822 Contact with and (suspected) exposure to COVID-19; Z3A.01 Less than 8 weeks gestation of pregnancy
CPT/HCPCS: 0241U; 36415; 76801; 80053; 81003; 81025; 83690; 83735; 84702; 85025; 96360; 99284

== ENCOUNTER 2023-09-19 16:01 | Emergency (ER) | payer OTHER, MEDICAID, SELFPAY ==
[2023-09-19 16:14] VITALS: BP 127/73; PULSE 88; RESP 20; TEMP 36.7; O2SAT 100; BMI 22.4
--- NOTE | 2023-09-19 17:01 | ED_ITS ---
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 She reports that she is bilateral back and kidney pain radiating around to her front. She denies any fever chills painful frequent urination no vaginal bleeding. She reports that her youngest son is 11 years old she sews been awhile since she has been . She does not remember is kind of discomfort. She has not really taken anything for pain although last night when she could not sleep she did take a 1000 mg of Tylenol around 3:00 a.m. which she said did help a little. She reports that it is much worse when she lays down and tries to get comfortable. She just can not. She reports she just feels like she has to stretch she tried taking a bath last night she just can not get comfortable. Related Data Home Medications Medication Instructions Recorded Confirmed albuterol sulfate 90 mcg/actuation 2 puff inhalation Q6H PRN 02/01/19 08/13/20 aerosol inhaler Shortness Of Breath epinephrine 0.3 mg/0.3 mL 0.3 ml IM PRN PRN Allergic Reaction 04/27/19 08/13/20 injection, auto-injector IUD intrauterine 05/23/20 08/13/20 Previous Rx's Medication Instructions Recorded venlafaxine 37.5 mg 37.5 mg PO DAILY #30 caps 08/13/20 capsule,extended release 24 hr Allergies Allergy/AdvReac Type Severity Reaction Status Date / Time peanut Allergy Severe Anaphylaxis Verified 08/13/20 15:53 Penicillins Allergy Severe Anaphylaxis Verified 08/13/20 15:53 amoxicillin Allergy Anaphylaxis Verified 09/19/23 16:21 bupropion AdvReac Verified 09/19/23 16:21 Review of Systems Review of Systems ROS Unobtainable: All systems reviewed & are unremarkable except as noted in HPI and below Exam Initial Vital Signs Initial Vital Signs: Vital Signs Temperature 98.1 F 09/19/23 16:14 Pulse Rate 88 09/19/23 16:14 Respiratory Rate 20 09/19/23 16:14 Blood Pressure 127/73 09/19/23 16:14 Pulse Oximetry 100 09/19/23 16:14 Oxygen Delivery Method Room Air 09/19/23 16:14 GENERAL: Alert pleasant well-appearing 32-year-old female and in no acute distress. HEENT: Head atraumatic,EOMI, pupils reactive, face symmetric, moist mucous membranes CARDIOVASCULAR: Regular rate and rhythm without murmurs, rubs or gallops. RESPIRATORY: Breath sounds equal bilaterally, no wheezes rales or rhonchi. ABDOMEN: Soft, non tender although she is some mild discomfort bilateral poor abdomen no guarding or rebound no significant right upper quadrant pain no significant right lower quadrant pain : no CVA tenderness BACK: Bilateral lower lumbar pain, nontender in her SI joints pelvis stable, pain not reproducible EXTREMITIES: Normal range of motion, no clubbing or edema. Neurovascularly intact NEUROLOGICAL: Alert and oriented x4.Normal gait and speech. SKIN: Warm, dry, no laceration, no petechiae, no rashes or lesions. Course Orders Ordered: Discontinued Medications Acetaminophen (Acetaminophen 325 Mg Tablet) 975 mg PO NOW ONE Stop: 09/19/23 17:16 Last Admin: 09/19/23 17:48 Dose: 975 mg Documented By: RB Vital Signs Vital signs: Vital Signs - 8 hr 09/19/23 16:14 Temperature 98.1 F Pulse Rate 88 Respiratory Rate 20 Blood Pressure 127/73 Pulse Oximetry 100 Oxygen Delivery Method Room Air MDM - OB/Uterine Contractions Lab Data Labs: Urine Dip Bedside Urine Glucose Negative Bedside Urine Bilirubin - Negative Bedside Urine Ketone - Negative Urine Specific [place] 1.005 Bedside Urine Occult Blood - Negative Bedside Urine pH 6.0 Bedside Urine Protein - Negative Bedside Urine Urobilinogen - Negative Bedside Urine Nitrite - Negative Bedside Urine Leukocytes - Negative Esterase Imaging Data US - OB: Radiologist's Impression: PROCEDURE: US OB LIMITED INDICATIONS: BACK PAIN OUTSIDE/PRIOR DATING DATA: Last menstrual period (LMP): 05/31/2023. LMP-based estimated date of delivery (REMA): 03/06/2024. First dating scan (date and location): Not applicable. Estimated date of delivery (REMA) from first dating scan: Not applicable. TECHNIQUE: Real-time scanning was performed of the fetus, with image documentation. Endovaginal scanning: None COMPARISON: None. FINDINGS: A single living intrauterine gestation is present. Presentation: Cephalic. Placenta: Placental position is anterior, without previa. Amniotic fluid index: 10.9 cm, normal range is 5-24 cm. Single deepest vertical pocket is 3.3 cm. heart rate: 147 beats per minute. Maternal cervical canal: 4.8 cm long. Normal lower limit is 2.5 cm. Clinically estimated gestational age: Not calculated IMPRESSION: Single live intrauterine . Normal OMAR and cervical length Approved by: Ced Higuera M.D. on 09/19/2023 at 17:40 MDM Narrative Medical decision making narrative: Patient 32-year-old female presenting today with back pain ongoing for last 2 days. It is reading around to her abdomen both size feels better with massage. No nausea vomiting no fever urinalysis is negative. She staying hydrated she overall appears well and nontoxic. Vitals are stable she is not hypertensive. This time I really think this is musculoskeletal related. Ultrasound is overall reassuring. We discussed self-care including yoga massage acupuncture. Discharge Plan Departure Patient Disposition: Home Clinical Impression: Back pain affecting in second trimester Instructions: DI for -- Discomforts and Remedies Activity Restrictions/Additional Instructions: *You have been diagnosed with back pain with *What to do: At this time I do recommend stretching may try yoga acupuncture massage. Recommend belly band and pelvic brace. *Continue to take medications as directed Tylenol 1000 mg every 6 hours if needed Avoid aspirin ibuprofen/naproxen/Aleve *Follow up with your primary care provider in 2-3 days or call [phone] *Return to ER if you should have increasing pain fever nausea vomiting or any new, worsening or concerning symptoms Prescriptions: No Action IUD intrauterine venlafaxine 37.5 mg capsule,extended release 24hr 37.5 mg PO DAILY Qty: 30 1RF epinephrine 0.3 mg/0.3 mL auto-injector 0.3 ml IM PRN PRN (Reason: Allergic Reaction) albuterol sulfate 90 mcg/actuation HFA aerosol inhaler 2 puff INHALATION Q6H PRN (Reason: Shortness Of Breath) Referrals: Rudy Brown MD [Primary Care Provider] - Stand Alone Forms: Patient Portal/API
--- NOTE | 2023-09-19 17:15 | DI.US.S_ITS ---
PROCEDURE: US OB LIMITED INDICATIONS: BACK PAIN OUTSIDE/PRIOR DATING DATA: Last menstrual period (LMP): 05/31/2023. LMP-based estimated date of delivery (REMA): 03/06/2024. First dating scan (date and location): Not applicable. Estimated date of delivery (REMA) from first dating scan: Not applicable. TECHNIQUE: Real-time scanning was performed of the fetus, with image documentation. Endovaginal scanning: None COMPARISON: None. FINDINGS: A single living intrauterine gestation is present. Presentation: Cephalic. Placenta: Placental position is anterior, without previa. Amniotic fluid index: 10.9 cm, normal range is 5-24 cm. Single deepest vertical pocket is 3.3 cm. heart rate: 147 beats per minute. Maternal cervical canal: 4.8 cm long. Normal lower limit is 2.5 cm. Clinically estimated gestational age: Not calculated IMPRESSION: Single live intrauterine . Normal OMAR and cervical length Approved by: Ced Higuera M.D. on 09/19/2023 at 17:40
[2023-09-19] MEDS: ACETAMINOPHEN 325 MG TABLET 975 MG PO (17:48)
[2023-09-19 18:16] VITALS: BP 132/68; PULSE 91; RESP 16; TEMP 36.9; O2SAT 99
== END 2023-09-19 18:16 | disposition home or self-care (01) ==
PROVIDERS: Emergency Provider Emergency Medicine; PCP Family Medicine
DX: O26.892 Other specified pregnancy related conditions, second trimester (principal); M54.9 Dorsalgia, unspecified; Z3A.17 17 weeks gestation of pregnancy
CPT/HCPCS: 76815; 81003; 99283

== ENCOUNTER 2023-10-07 18:27 | Emergency (ER) | payer OTHER, MEDICAID, SELFPAY ==
[2023-10-07] VITALS (9 sets, daily range): BP systolic 103–139; BP diastolic 60–74; PULSE 72–98; RESP 16–18; TEMP 36.6–36.7; O2SAT 98–100; BMI 22.7
--- NOTE | 2023-10-07 18:53 | DI.US.S_ITS ---
PROCEDURE: US OB LIMITED INDICATIONS: SPOTTING X 2 DAYS WITH POSSIBLE PASSAGE OF TISSUE PER PATIENT OUTSIDE/PRIOR DATING DATA: Last menstrual period (LMP): 05/31/2023. LMP-based estimated date of delivery (REMA): 03/06/2024. TECHNIQUE: Real-time scanning was performed of the fetus, with image documentation. COMPARISON: [facility], OB LIMITED, 09/19/2023, 17:41. FINDINGS: A single living intrauterine gestation is present. Presentation: Vertex. Placenta: Placental position is anterior. Probable placental Kelly. Low lying placenta with the placental edge adjacent to the internal cervical os. Amniotic fluid index: 14.3 cm, normal range is 5-24 cm. Single deepest vertical pocket is 5 cm. heart rate: 116 beats per minute. Maternal cervical canal: 4.3 cm long. Normal lower limit is 2.5 cm. No funneling. Clinically estimated gestational age: 18 weeks 3 days IMPRESSION: 1. Hernandez living intrauterine at 18 weeks 3 days based on prior clinical dating. heart rate 116 bpm. 2. Normal amniotic fluid. Low lying placenta. Probable small placental Kelly. Recommend attention on follow-up OB ultrasound. 3. Normal cervical length. No funneling. Recommend short-term follow-up OB ultrasound for anatomic survey and to further evaluate the placental edge. Dictated by: Carlos Josue M.D. on 10/07/2023 at 22:17 Approved by: Carlos Josue M.D. on 10/07/2023 at 22:23
[2023-10-07 19:23] LABS: Appearance Urine UA CLEAR; Bilirubin Urine UA NEGATIVE (NEGATIVE); Color Urine UA YELLOW; Glucose Urine UA NEGATIVE (Negative); Ketones Urine UA NEGATIVE (NEGATIVE); Leukocyte Esterase Urine UA NEGATIVE (NEGATIVE); Nitrite Urine UA NEGATIVE (Negative); Occult Blood Urine UA 2+ (Negative); Protein Urine UA NEGATIVE (Negative); Urobilinogen Urine UA 0.2 E.U./dL (0.2)
[2023-10-07] MEDS: SODIUM CHLORIDE 0.9% 1,000 ML 1000 ML IV (19:28)
[2023-10-07 19:34] LABS: Add Manual Diff / Slide Review NO; Basophils Absolute Auto 0 /uL (0-100); Basophils Percent Auto 0.4 % (0-2); Eosinophils Absolute Auto 100 /uL (0-450); Eosinophils Percent Auto 1.1 % (2-4); Hematocrit 38.9 % (36-46); Hemoglobin 13.5 g/dL (12.0-16.0); Lymphocytes Absolute Auto 1700 /uL (1100-4500); Lymphocytes Percent Auto 18.2 % (25-40); Mean Corpuscular HGB Conc 34.8 % (30-36); Mean Corpuscular Hemoglobin 30.1 PG (26-34); Mean Corpuscular Volume 86.6 fL (80-100); Monocytes Absolute Auto 700 /uL (0-900); Monocytes Percent Auto 6.9 % (3-14); Neutrophils Absolute Auto 7000 /uL (1500-7000); Neutrophils Percent Auto 73.4 % (50-75); Platelet Count 182 X10^3/uL (150-400); Red Blood Cell Count 4.49 X10^6/uL (4.0-5.2); Red Cell Distribution Width 12.9 % (11.6-14.8); White Blood Cell Count 9.5 X10^3/uL (4.5-11.0)
[2023-10-07 19:43] LABS: Bacteria Urine Few (2-10); Culture Indicated Urine Cult Not Indicated; RBC Urine 0-1/HPF (0-5/HPF); Squamous Epithelial Cell Urine 0-1 /HPF (0-5/HPF); WBC Urine None Seen (0-5/HPF)
[2023-10-07 19:46] LABS: Alanine Aminotransferase 17 IU/L (<35); Albumin 4.3 g/dL (3.5-5.0); Albumin Globulin Ratio 1.2 (1.0-2.8); Alkaline Phosphatase 67 U/L (38-126); Aspartate Aminotransferase 24 IU/L (14-36); Bilirubin Total 0.6 mg/dL (0.2-1.3); Blood Urea Nitrogen 10 mg/dL (7-17); Calcium 9.8 mg/dL (8.4-10.2); Carbon Dioxide 22 mmol/L (22-32); Chloride 104 mmol/L (98-107); Estimated Glomerular Filt Rate > 60 mL/min (>60); Globulin 3.7 g/dL (1.7-4.1); Glucose 89 mg/dL (70-100); HEMOLYSIS < 15 (0-50); Potassium 3.4 mmol/L (3.4-5.1); Sodium 134 mmol/L (137-145)
--- NOTE | 2023-10-07 19:56 | ED_ITS ---
HPI - General Chief complaint: Vaginal Bleeding Stated complaint: 18 WKS , contractions, Time Seen by Provider: 10/07/23 18:53 Source: patient Mode of arrival: Ambulatory History of Present Illness HPI Narrative: Patient is a 32-year-old female currently 18 weeks followed by made with for a presents today with what she calls abdominal contractions and feeling the need to push, and feeling significant pressure whenever she stands. She reports that she started feeling this yesterday she passively bit of tissue as well little bit of spotting. She reports that it is not cramping that it feels very much like contractions. She has not timed them but has had 6 or 7 she has been in the ED since 5pm. She reports that when she stands she feels intense pressure in her pelvic region which is new. Related Data Home Medications Medication Instructions Recorded Confirmed albuterol sulfate 90 mcg/actuation 2 puff inhalation Q6H PRN 02/01/19 08/13/20 aerosol inhaler Shortness Of Breath epinephrine 0.3 mg/0.3 mL 0.3 ml IM PRN PRN Allergic Reaction 04/27/19 08/13/20 injection, auto-injector IUD intrauterine 05/23/20 08/13/20 Previous Rx's Medication Instructions Recorded venlafaxine 37.5 mg 37.5 mg PO DAILY #30 caps 08/13/20 capsule,extended release 24 hr nitrofurantoin 100 mg PO Q12H 5 days #10 caps 10/08/23 monohydrate/macrocrystals 100 mg capsule (Macrobid) Allergies Allergy/AdvReac Type Severity Reaction Status Date / Time peanut Allergy Severe Anaphylaxis Verified 08/13/20 15:53 Penicillins Allergy Severe Anaphylaxis Verified 08/13/20 15:53 amoxicillin Allergy Anaphylaxis Verified 09/19/23 16:21 bupropion AdvReac Verified 09/19/23 16:21 Review of Systems Review of Systems ROS Unobtainable: All systems reviewed & are unremarkable except as noted in HPI and below Exam Initial Vital Signs Initial Vital Signs: Vital Signs Temperature 97.8 F 10/07/23 18:42 Pulse Rate 98 H 10/07/23 18:42 Respiratory Rate 16 10/07/23 18:42 Blood Pressure 139/74 10/07/23 18:42 Pulse Oximetry 99 10/07/23 18:42 Oxygen Delivery Method Room Air 10/07/23 18:42 GENERAL: Alert pleasant well-appearing 32-year-old female and in no acute distress. HEENT: Head atraumatic,EOMI, pupils reactive, face symmetric, moist mucous membranes CARDIOVASCULAR: Regular rate and rhythm without murmurs, rubs or gallops. RESPIRATORY: Breath sounds equal bilaterally, no wheezes rales or rhonchi. ABDOMEN: Soft, nontender. Normoactive bowel sounds all 4 quadrants. No guarding or rebound. EXTREMITIES: Normal range of motion, no clubbing or edema. Neurovascularly intact NEUROLOGICAL: Alert and oriented x4.Normal gait and speech. SKIN: Warm, dry, no laceration, no petechiae, no rashes or lesions. Course Orders Ordered: Discontinued Medications Sodium Chloride (Normal Saline 0.9%) 1,000 mls @ 1,000 mls/hr IV BOLUS ONE Stop: 10/07/23 19:53 Last Infusion: 10/07/23 20:13 Dose: Infused Documented By: Admin: 10/07/23 19:28 Dose: 1,000 mls/hr Documented By: NEERAJ Vital Signs Vital signs: Vital Signs - 8 hr 10/07/23 20:00 10/07/23 20:00 10/07/23 20:32 Temperature Pulse Rate 93 H 96 H Respiratory Rate Blood Pressure 125/72 Pulse Oximetry 100 98 Oxygen Delivery Method Room Air 10/07/23 21:00 10/07/23 21:30 10/07/23 21:30 Temperature Pulse Rate 92 H 86 Respiratory Rate Blood Pressure 114/63 Pulse Oximetry 99 99 Oxygen Delivery Method 10/07/23 22:00 10/07/23 22:00 10/07/23 22:30 Temperature Pulse Rate 80 72 Respiratory Rate 18 Blood Pressure 103/60 Pulse Oximetry 98 98 Oxygen Delivery Method 10/07/23 23:01 Temperature 98.0 F Pulse Rate Respiratory Rate Blood Pressure Pulse Oximetry Oxygen Delivery Method MDM - OB/Uterine Contractions Lab Data 10/07/23 19:20 10/07/23 19:20 Labs: Lab Results 10/07/23 10/07/23 Range/Units 18:58 19:20 WBC 9.5 (4.5-11.0) X10^3/uL RBC 4.49 (4.0-5.2) X10^6/uL Hgb 13.5 (12.0-16.0) g/dL Hct 38.9 (36-46) % MCV 86.6 (80-100) fL MCH 30.1 (26-34) PG MCHC 34.8 (30-36) % RDW 12.9 (11.6-14.8) % Plt Count 182 (150-400) X10^3/uL Neut % (Auto) 73.4 (50-75) % Lymph % (Auto) 18.2 L (25-40) % [place] % (Auto) 6.9 (3-14) % Eos % (Auto) 1.1 L (2-4) % Baso % (Auto) 0.4 (0-2) % Neut # (Auto) 7000 (9430-7560) /uL Lymph # (Auto) 1700 (2125-9001) /uL [place] # (Auto) 700 (0-900) /uL Eos # (Auto) 100 (0-450) /uL Baso # (Auto) 0 (0-100) /uL Sodium 134 L (137-145) mmol/L Potassium 3.4 (3.4-5.1) mmol/L Chloride 104 (98-107) mmol/L Carbon Dioxide 22 (22-32) mmol/L BUN 10 (7-17) mg/dL Creatinine 0.50 L (0.52-1.04) mg/dL Estimated GFR > 60 (>60) mL/min BUN/Creatinine Ratio 20.0 (6-22) Glucose 89 (70-100) mg/dL Calcium 9.8 (8.4-10.2) mg/dL Total Bilirubin 0.6 (0.2-1.3) mg/dL AST 24 (14-36) IU/L ALT 17 (<35) IU/L Alkaline Phosphatase 67 (38-126) U/L Total Protein 8.0 (6.3-8.2) g/dL Albumin 4.3 (3.5-5.0) g/dL Globulin 3.7 (1.7-4.1) g/dL Albumin/Globulin Ratio 1.2 (1.0-2.8) Urine Color Yellow Urine Appearance Clear Urine pH 7.0 (4.5-8.0) Ur Specific [place] 1.010 (1.000-1.035) Urine Protein Negative (Negative) Urine Glucose (UA) Negative (Negative) g/dL Urine Ketones Negative (NEGATIVE) Urine Occult Blood 2+ H (Negative) Urine Nitrate Negative (Negative) Urine Bilirubin Negative (NEGATIVE) Urine Urobilinogen 0.2 (0.2) E.U./dL Ur Leukocyte Esterase Negative (NEGATIVE) Urine RBC 0-1/hpf (0-5/HPF) Urine WBC None seen (0-5/HPF) Ur Squamous Epith Cells 0-1 /hpf (0-5/HPF) Urine Bacteria Few (2-10) H (None) Ur Culture Indicated? Cult not indicated Imaging Data US - OB: Radiologist's Impression: PROCEDURE: US OB LIMITED INDICATIONS: SPOTTING X 2 DAYS WITH POSSIBLE PASSAGE OF TISSUE PER PATIENT OUTSIDE/PRIOR DATING DATA: Last menstrual period (LMP): 05/31/2023. LMP-based estimated date of delivery (REMA): 03/06/2024. TECHNIQUE: Real-time scanning was performed of the fetus, with image documentation. COMPARISON: [facility], , US OB LIMITED, 09/19/2023, 17:41. FINDINGS: A single living intrauterine gestation is present. Presentation: Vertex. Placenta: Placental position is anterior. Probable placental Kelly. Low lying placenta with the placental edge adjacent to the internal cervical os. Amniotic fluid index: 14.3 cm, normal range is 5-24 cm. Single deepest vertical pocket is 5 cm. heart rate: 116 beats per minute. Maternal cervical canal: 4.3 cm long. Normal lower limit is 2.5 cm. No funneling. Clinically estimated gestational age: 18 weeks 3 days IMPRESSION: 1. Hernandez living intrauterine at 18 weeks 3 days based on prior clinical dating. heart rate 116 bpm. 2. Normal amniotic fluid. Low lying placenta. Probable small placental Kelly. Recommend attention on follow-up OB ultrasound. 3. Normal cervical length. No funneling. Recommend short-term follow-up OB ultrasound for anatomic survey and to further evaluate the placental edge. [facility] Narrative Medical decision making narrative: Patient 32-year-old female currently 18 weeks presenting today with what she calls contractions semi regular intense pain episodes and pressure in her pelvic region. She had a small amount of vaginal bleeding as well. Ultrasound does not show any sort of funneling cervical length is 4.3 cm. Blood work overall reassuring no evidence of anemia or electrolyte abnormality or HAYLEE. Urinalysis does show 2+ blood with a few bacteria no leukocytes or nitrates culture is not pending. Dr. Duarte, on-call OB consulted in regards to patient's symptoms and ultrasound. She reports it without funneling nothing further to do. We specifically discussed NST. However she said at this time indicated just recommend following up with product marketing manager. Discussed results and OB recommendations with the patient we discussed warning signs when to return to the ED. 10/09/23 7pm Patient was discharged on 10/07. Urinalysis did have blood in a couple bacteria did not indicate for culture. I attempted to call patient I left her a voicemail. I did send Macrobid to [place] [facility]. Never spoke with patient. Discharge Plan Departure Patient Disposition: Home Clinical Impression: Abdominal pain during Instructions: DI for Abdominal Pain -- Early Activity Restrictions/Additional Instructions: *You have been diagnosed with abdominal pain and *What to do: At this time cervix is 4.3 cm no sign of funneling. heart rate is 116. You do have low lying placenta follow-up with OB on repeat ultrasound next week *Continue to take medications as directed *Follow up with your primary care provider in 2-3 days or call [phone] *Return to ER if you should have increased pain increased vaginal bleeding or any new, worsening or concerning symptoms Prescriptions: New nitrofurantoin monohyd/m-cryst [Macrobid] 100 mg capsule 100 mg PO Q12H 5 Days Qty: 10 0RF Rx Instructions: must administer with a meal/food No Action IUD intrauterine venlafaxine 37.5 mg capsule,extended release 24hr 37.5 mg PO DAILY Qty: 30 1RF epinephrine 0.3 mg/0.3 mL auto-injector 0.3 ml IM PRN PRN (Reason: Allergic Reaction) albuterol sulfate 90 mcg/actuation HFA aerosol inhaler 2 puff INHALATION Q6H PRN (Reason: Shortness Of Breath) Referrals: Rudy Brown MD [Primary Care Provider] - Stand Alone Forms: Patient Portal/API
== END 2023-10-07 23:02 | disposition home or self-care (01) ==
PROVIDERS: Emergency Provider Emergency Medicine; PCP Family Medicine
DX: O26.892 Other specified pregnancy related conditions, second trimester (principal); R10.9 Unspecified abdominal pain; Z3A.18 18 weeks gestation of pregnancy
CPT/HCPCS: 36415; 76815; 76817; 80053; 81001; 85025; 96360; 99284

== ENCOUNTER → 2023-10-11 06:59 | Outpatient (CLI) | payer OTHER, MEDICAID, SELFPAY ==
--- NOTE | 2023-10-11 | DI.US.S_ITS ---
PROCEDURE: US OB >= 14 WEEKS FETUS INDICATIONS: 20WK ANATOMY SCAN OUTSIDE/PRIOR DATING DATA: Last menstrual period (LMP): Inconsistently reported. LMP-based estimated date of delivery (REMA): Uncertain. First dating scan (date and location): None available. Estimated date of delivery (REMA) from first dating scan: Not available. The calculations are made using the working REMA of 02/28/24. TECHNIQUE: Real-time scanning was performed of the fetus, with image documentation and biometric measurements. Endovaginal scanning: Not performed COMPARISON: [facility], OB LIMITED, 09/19/2023, 17:41. [facility], OB LIMITED, 10/07/2023, 20:06. FINDINGS: General: A single living intrauterine gestation is present. Presentation: Transverse, head to maternal right. Placenta: Placental position is anterior , completely covering the internal cervical os. Amniotic fluid index: 12.7 cm, normal range is 5-24 cm. Single deepest vertical pocket is 4.5 cm. heart rate: 144 beats per minute. Maternal cervical canal: Closed and 5.2 cm long. Normal lower limit is 2.5 cm. biometrics: Biparietal diameter: 4.5 cm, 19 weeks 4 days Head circumference: 17.1 cm, 19 weeks 5 days Abdominal circumference: 14.3 cm, 19 weeks 4 days Femur length: 3.0 cm, 19 weeks 2 days Clinically estimated gestational age: 20 weeks 0 days Composite gestational age from present scan: 19 weeks 4 days Estimated weight and percentile: 296 g, 20th percentile Anatomic survey: Neuro: Ventricles are non-dilated at less than 10 mm. Cisterna magna is normal at 3-11 mm. Cerebellum is normal in size and morphology. Nuchal skin fold: Normal at less than 6 mm between 14-21 weeks gestational age. Face: Nose and lips are normal. The facial profile was not well seen due to lie. Spine: No evidence for spina bifida. Heart: 4-chambered heart is present, with normal ventricular outflow tracts. Incidental note of left ventricular intracardiac echogenic focus. Diaphragm: Diaphragm is intact. Stomach: Left-sided stomach is present. Kidneys: No hydronephrosis. Normal is less than 5 mm in 2nd trimester, less than 7 mm in 3rd trimester. Cord: 3-vessel cord has orthotopic insertion. Bladder: Normal in size. Extremities: All 4 extremities identified. IMPRESSION: 1. Single living intrauterine with composite gestational age 3 days behind expected. 2. facial profile not well seen. Consider follow-up. 3. Anterior placenta with complete previa. Re-evaluation in early 3rd trimester recommended. 4. Incidental cardiac left ventricular echogenic focus. In the absence of other definite anomalies, this is unlikely to be clinically significant. Correlate with free cell DNA result. We strive to produce accurate, complete, and clear reports of imaging services. To assist us in improving patient care, this report was composed using standard report templates and voice recognition software. Therefore, it may contain abnormal punctuation, insertions and/or omissions. Occasional wrong-word or sound-alike substitutions may occur. Though we review the report and make efforts to correct it, we do recommend that the report be read carefully in proper context to recognize any text inaccuracies. Dictated by: Karolyn Shultz M.D. on 10/11/2023 at 11:33 Approved by: Karolyn Shultz M.D. on 10/11/2023 at 11:43
== END ==
PROVIDERS: PCP Family Medicine; Referring Provider Midwife; Visit Provider Midwife
DX: O44.02 Complete placenta previa NOS or without hemorrhage, second trimester (principal); Z3A.19 19 weeks gestation of pregnancy
CPT/HCPCS: 76811

== ENCOUNTER → 2023-11-23 11:09 | Outpatient (CLI) | payer OTHER, MEDICAID, SELFPAY ==
--- NOTE | 2023-11-23 | DI.US.S_ITS ---
PROCEDURE: US OB FOLLOW UP INDICATIONS: GROWTH AND PLACENTA LOCATION OUTSIDE/PRIOR DATING DATA: Last menstrual period (LMP): 05/24/2023 LMP-based estimated date of delivery (REMA): 02/28/2024 First dating scan (date and location): 1st trimester ultrasound unavailable. The calculations are made using the clinical REMA of 02/28/2024 TECHNIQUE: Real-time scanning was performed of the fetus, with image documentation and biometric measurements. Endovaginal scanning: Not performed. COMPARISON: [facility], OB >= 14 WEEKS FETUS, 10/11/2023, 7:08. FINDINGS: General: A single living intrauterine gestation is present. Presentation: Vertex Placenta: Placental position is anterior. Lower placental margin is approximately 1.7 cm from the internal cervical os. Amniotic fluid index: 11.7 cm, normal range is 5-24 cm. Single deepest vertical pocket is 4.6 cm. heart rate: 165 beats per minute. Maternal cervical canal: 4.2 cm long. Normal lower limit is 2.5 cm. biometrics: Biparietal diameter: 6.2 cm, 25 weeks 2 days Head circumference: 23.8 cm, 25 weeks 6 days Abdominal circumference: 20.1 cm, 24 weeks 5 days Femur length: 4.9 cm, 26 weeks 2 days Clinically estimated gestational age: 26 weeks 1 day Composite gestational age from present scan: 25 weeks 4 days Estimated weight and percentile: 812 grams, 15th percentile Other: Echogenic focus in the left ventricle is again seen but appears slightly less prominent. facial profile is within normal limits. IMPRESSION: 1. Single live intrauterine . Estimated weight is at the 15th percentile for clinical gestational age. 2. Low lying anterior placenta, with lower margin 1.7 cm from the internal cervical os. 3. facial profile is within normal limits. 4. Left ventricular echogenic focus is redemonstrated but appears mildly less prominent when compared to the prior exam. Approved by: Joey Grullon M.D. on 11/23/2023 at 16:05
== END ==
PROVIDERS: PCP Family Medicine; Referring Provider Nurse Practitioner Obstetrics & Gynecology; Visit Provider Nurse Practitioner Obstetrics & Gynecology
DX: O09.92 Supervision of high risk pregnancy, unspecified, second trimester (principal); O44.42 Low lying placenta NOS or without hemorrhage, second trimester; O44.02 Complete placenta previa NOS or without hemorrhage, second trimester; O26.842 Uterine size-date discrepancy, second trimester; Z3A.25 25 weeks gestation of pregnancy
CPT/HCPCS: 76816

== ENCOUNTER 2023-12-31 18:49 | Outpatient (CLI) | payer OTHER, MEDICAID, SELFPAY ==
--- NOTE | 2023-12-31 18:52 | DI.US.S_ITS ---
PROCEDURE: US OB LIMITED INDICATIONS: PTL; CERVICAL LENGTH OUTSIDE/PRIOR DATING DATA: Last menstrual period (LMP): 05/24/23 LMP-based estimated date of delivery (REMA): 02/28/24. First dating scan (date and location): 10/11/23 Estimated date of delivery (REMA) from first dating scan: 02/28/24. TECHNIQUE: Real-time scanning was performed of the fetus, with image documentation. Endovaginal scanning: Not needed COMPARISON: [facility], OB LIMITED, 10/07/2023, 20:06. [facility], OB LIMITED, 09/19/2023, 17:41. FINDINGS: A single living intrauterine gestation is present. Presentation: Breech. Placenta: Placental position is anterior, without previa. Amniotic fluid index: 12.4 cm, normal range is 5-24 cm. Single deepest vertical pocket is 6.2 cm. heart rate: 120 beats per minute. Maternal cervical canal: 4.7 cm long. Normal lower limit is 2.5 cm. Estimated gestational age from initial scan: 31 weeks 4 days. IMPRESSION: Single living intrauterine gestation, very limited study requested by clinician, cervical length is normal. Dictated by: Baron Azevedo M.D. on 01/01/2024 at 20:33 Approved by: Baron Azevedo M.D. on 01/01/2024 at 20:36
--- NOTE | 2023-12-31 20:32 | PM.OBTRLD ---
Visit Information Visit Information Date of evaluation: 12/31/23 Primary OB Provider: Patricia Chisholm On-call OB Provider: Patricia Chisholm Reason for Evaluation: Yes pre-term labor Comments/Additional reasons for admission: Shasha Pro, 33yo, female, @ 31w4d based on 7w US presents to triage for evaluation of contractions. Mild, frequent (3-6min) contractions started 1650. movement felt. Denies vaginal bleeding or leaking of fluids. With friend at bedside. Vital Signs Vital Signs: BP: 142/86 (taken while talking + previous failed BP draw) repeated to 115/71 HR: 100 T:35.9c temporal PFSH Medical History Depression Anxiety Surgical History History of cholecystectomy Family History Other Depression Hypertension Social History do you feel safe at home: Yes Smoking Status: Never smoker Review of Systems Review of Systems ROS: Yes All systems reviewed with the patient and are negative except as otherwise documented Exam Vital Signs (past 8 hours): see above Const General: cooperative and healthy appearing Orientation: alert, awake and oriented x3 Resp Effort & Inspection: normal respiratory effort and able to speak in complete sentences Cardio Rate: regular rate Rhythm: regular rhythm Presentation: j carlos breech Objective Imaging Cervical Length US: My impression: Cervix greater than 4cm in length Evaluation Evaluation Baseline heart rate: 135 Variability: Moderate (11-25) monitor accelerations: Present Monitor Decelerations: Absent Uterine Contraction Intensity: Mild Category of Tracing: Reactive Cervical dilation (cm): 1 (inner os closed) Cervical effacement (%): 50 station: 0 Diagnosis, Plan/Disposition Final Diagnosis (1) False labor before 37 completed weeks of gestation: Status: Acute Plan/Disposition Plan: A: 33yo @ 31w4d contractions w/o labor Cervical length >4cm Reactive NST P: Discussed reactive NST and reassuring pelvic US. Reviewed education on contractions including s/sx and management. Reassured that she is not currently in labor. Discharge to home with plan to f/u on 01/11/24.
== END 2023-12-31 19:49 | disposition home or self-care (01) ==
LOC: OB 01-03 08:27
PROVIDERS: PCP Family Medicine; Referring Provider Advanced Practice Midwife; Visit Provider Advanced Practice Midwife
DX: O47.03 False labor before 37 completed weeks of gestation, third trimester (principal); Z3A.31 31 weeks gestation of pregnancy
CPT/HCPCS: 59025; 76815; G0378; G0379

== ENCOUNTER 2024-02-22 08:55 | Outpatient (CLI) | payer OTHER, MEDICAID, SELFPAY ==
--- NOTE | 2024-02-22 09:41 | PM.OBTRLD ---
Visit Information Visit Information Date of evaluation: 02/22/24 Primary OB Provider: Hannah Fairbanks On-call OB Provider: Hannah Fairbanks Reason for Evaluation: Yes rupture of membranes Comments/Additional reasons for admission: 33YO @ 39wks here for evaluation of suspected PROM. Has noticed small amounts of watery, leaking fluid since 8pm last night. No cramping. Has had scant brown discharge x 5 days. Routine care with CNMs. Vital Signs Vital Signs: BP 127/81, HR 77bpm, T 36.2C Temporal PFSH Medical History Depression Anxiety Surgical History History of cholecystectomy Family History Other Depression Hypertension Social History do you feel safe at home: Yes Smoking Status: Never smoker Review of Systems Review of Systems ROS: Yes All systems reviewed with the patient and are negative except as otherwise documented Exam Vital Signs (past 8 hours): see above Presentation: vertex Amniotic Fluid: no fluid Evaluation Evaluation Baseline heart rate: 140 Variability: Moderate (11-25) monitor accelerations: Present Monitor Decelerations: Absent Contraction Frequency (minutes): 12 Uterine Contraction Intensity: Mild Category of Tracing: Reactive Non-invasive Membranes Rupture Test: negative Diagnosis, Plan/Disposition Final Diagnosis (1) Intact amniotic membranes during in third trimester: Status: Acute Plan/Disposition Plan: Discharge to home with routine labor precautions. OB Disposition: home
== END 2024-02-22 09:55 | disposition home or self-care (01) ==
LOC: LABOR 09:31 → OB 02-24 09:36
PROVIDERS: Family Provider Family Medicine; PCP Family Medicine; Referring Provider Nurse Practitioner Obstetrics & Gynecology; Visit Provider Nurse Practitioner Obstetrics & Gynecology
DX: Z36.9 Encounter for antenatal screening, unspecified (principal)
CPT/HCPCS: 59025; 84112; G0378; G0379

== ENCOUNTER 2024-02-27 19:14 | Outpatient (CLI) | payer OTHER, MEDICAID, SELFPAY ==
--- NOTE | 2024-02-27 20:20 | PM.OBTRLD ---
Visit Information Visit Information Date of evaluation: 02/27/24 Primary OB Provider: Patricia Chisholm On-call OB Provider: Patricia Chisholm Reason for Evaluation: Yes rupture of membranes Comments/Additional reasons for admission: Shasha called at 1855 after feeling a gush of warm fluid while walking down the stairs in her home. She said that the fluid continued trickling after the initial gush. She took a bath earlier in the evening and does not report any increased frequency or intensity of contractions. She did not believe it to be urine and thought her water might have broken. Continues to have episodes of contractions off and on, nothing more intense than usual. Spotting occasionally. Baby moved well all day. She wanted to come in and confirm ROM. Shasha was disappointed by negative AmniSure. Has never noticed that much leaking of fluid after taking a bath. Vital Signs Vital Signs: BP: 135/86, HR: 82, T: 36.3 PFSH Medical History Depression Anxiety Surgical History History of cholecystectomy Family History Other Depression Hypertension Social History do you feel safe at home: Yes Smoking Status: Never smoker Review of Systems Review of Systems Narrative: All negative except as mentioned in HPI Exam Vital Signs (past 8 hours): See above Objective Labs Labs: AmniSure: Negative Evaluation Evaluation Baseline heart rate: 125 Variability: Moderate (11-25) monitor accelerations: Present Monitor Decelerations: Absent Contraction Frequency (minutes): 3 (q3-6 minutes) Uterine Contraction Intensity: Mild Category of Tracing: Reactive Status: Category l Comments: CE not performed Diagnosis, Plan/Disposition Final Diagnosis (1) Supervision of elderly multigravida, third trimester: Status: Acute (2) Intact amniotic membranes during in third trimester: Status: Acute (3) GBS (group B Streptococcus carrier), +RV culture, currently : Status: Acute Plan/Disposition Plan: AmniSure tested NST Discharge home Routine precautions. especially continued monitoring of vaginal discharge and will reevaluate PRN. RTC tomorrow for previously scheduled visit
== END 2024-02-27 20:15 | disposition home or self-care (01) ==
LOC: OB 02-28 15:26
PROVIDERS: Family Provider Family Medicine; PCP Family Medicine; Referring Provider Nurse Practitioner Obstetrics & Gynecology; Visit Provider Nurse Practitioner Obstetrics & Gynecology
DX: Z03.71 Encounter for suspected problem with amniotic cavity and membrane ruled out (principal); O09.523 Supervision of elderly multigravida, third trimester; Z3A.39 39 weeks gestation of pregnancy
CPT/HCPCS: 59025; 84112; G0378; G0379

== ENCOUNTER 2024-02-28 03:54 | Inpatient (IN) | payer OTHER, MEDICAID, SELFPAY ==
--- NOTE | 2024-02-28 04:38 | PM.OBHP.1 ---
OB HPI Date/Time Date of admission: 02/28/24 Date Patient Seen: 02/28/24 Time Patient Seen: 04:20 History of Present Condition Chief complaint: Labor : 8 Para: 3 Estimated Date of Delivery: 02/28/24 Estimated Gestational Age (weeks): 40w0d Narrative: Shasha Pro is a 33 year old female at 40 weeks 0 days by LMP concordant with 6 week US here for increased frequency and intensity of contractions in labor. complicated by GBS positive, genital HSV1, and anxiety. Has a h/o asthma, anxiety and depression. Contractions and bloody show began at home at 2100 on 02/26. She took a bath around 0230 and contractions became more painful. She arrived at at 0357 on 02/27. On admit she felt rectal pressure and ambulated to toilet to have large, soft stool. Bloody show, clear fluid, no mec. History of Present care: good care, initiated at week # (10.1), number of visits (11) and pounds weight gain (36 lb) Dating criteria: LMP confirmed by 1st trimester US Ultrasounds: normal 1st trimester US and normal mid trimester US Medical complications: psychiatric (Anxiety) Preadmission Labs -: GBS status: positive -: Chlamydia screen: not detected and Gonorrhea screen: not detected -: Rubella: immune and Varicella: unknown HCT: 38 Cell-free DNA: Declined Narrative: Normal blood sugar profiling Prior (ies) History: , term NSVDs x 3 in 2007, 2008, 2012. TAB prior to 2007; 3 SABs in 2021 and 2022. Evaluation Evaluation Baseline heart rate: 120 Variability: Moderate (11-25) monitor accelerations: Present Contraction Frequency (minutes): 1 (1-3) Uterine Contraction Intensity: Strong/Firm Category of Tracing: Reactive Status: Category l Dilation (cm): 8 Effacement (%): 90 Dilation: >/=5 cm Effacement: >/=80% station: +1 Position of cervix: anterior Consistency: soft Molina score: 13 PFSH Medical History Depression Anxiety Surgical History History of cholecystectomy Family History Other Depression Hypertension Social History do you feel safe at home: Yes Smoking Status: Never smoker Meds Home Medications and Allergies Home Medications Medication Instructions Recorded Confirmed Type albuterol sulfate 90 mcg/actuation 2 puff inhalation Q6H PRN 02/01/19 08/13/20 History aerosol inhaler Shortness Of Breath epinephrine 0.3 mg/0.3 mL 0.3 ml IM PRN PRN Allergic Reaction 04/27/19 08/13/20 History injection, auto-injector IUD intrauterine 05/23/20 08/13/20 History venlafaxine 37.5 mg 37.5 mg PO DAILY #30 caps 08/13/20 08/13/20 Rx capsule,extended release 24 hr Allergies Allergy/AdvReac Type Severity Reaction Status Date / Time peanut Allergy Severe Anaphylaxis Verified 08/13/20 15:53 Penicillins Allergy Severe Anaphylaxis Verified 08/13/20 15:53 amoxicillin Allergy Anaphylaxis Verified 09/19/23 16:21 bupropion AdvReac Verified 09/19/23 16:21 Review of Systems Review of Systems Narrative: All negative except as mentioned in HPI OB Exam Vital signs Blood Pressure: 143/81 Pulse Rate: 74 Temperature: 95.9 F Amniotic Fluid: clear Other: CE: 8/0/90/anterior/soft Objective Labs 02/28/24 04:40 02/28/24 04:40 Assessment and Plan Assessment and Plan Assessment and Plan narrative: at 40w0d AMA GBS positive, refusing antibiotics Elevated BP on admission Rh positive Active labor Genital HSV1 positive, 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 Reviewed r/b/a of GBS prophylaxis and why we recommend Prescribed and recommended HSV prophylaxis; refused due to long history of no outbreaks. Expectant management of labor Anticipate NSVB
[2024-02-28 05:04] LABS: Add Manual Diff / Slide Review NO; Basophils Absolute Auto 200 /uL (0-100); Basophils Percent Auto 1.3 % (0-2); Eosinophils Absolute Auto 100 /uL (0-450); Eosinophils Percent Auto 0.5 % (2-4); Lymphocytes Absolute Auto 1200 /uL (1100-4500); Lymphocytes Percent Auto 7.1 % (25-40); Mean Corpuscular HGB Conc 34.3 % (30-36); Mean Corpuscular Hemoglobin 29.5 PG (26-34); Mean Corpuscular Volume 86.2 fL (80-100); Monocytes Absolute Auto 1300 /uL (0-900); Monocytes Percent Auto 7.9 % (3-14); Neutrophils Absolute Auto 13600 /uL (1500-7000); Neutrophils Percent Auto 83.2 % (50-75); Platelet Count 175 X10^3/uL (150-400); Red Blood Cell Count 4.41 X10^6/uL (4.0-5.2); Red Cell Distribution Width 13.4 % (11.6-14.8); White Blood Cell Count 16.3 X10^3/uL (4.5-11.0)
[2024-02-28 05:14] LABS: Alanine Aminotransferase 15 IU/L (<35); Albumin 3.9 g/dL (3.5-5.0); Albumin Globulin Ratio 1.1 (1.0-2.8); Alkaline Phosphatase 240 U/L (38-126); Aspartate Aminotransferase 28 IU/L (14-36); BUN Creatinine Ratio 16.1 (6-22); Bilirubin Total 0.5 mg/dL (0.2-1.3); Blood Urea Nitrogen 9 mg/dL (7-17); Calcium 9.1 mg/dL (8.4-10.2); Carbon Dioxide 18 mmol/L (22-32); Chloride 108 mmol/L (98-107); Estimated Glomerular Filt Rate > 60 mL/min (>60); Globulin 3.6 g/dL (1.7-4.1); Glucose 106 mg/dL (70-100); HEMOLYSIS 32 (0-50); Potassium 3.4 mmol/L (3.4-5.1); Sodium 134 mmol/L (137-145); Total Protein 7.5 g/dL (6.3-8.2); Uric Acid 4.6 mg/dL (2.5-6.2)
[2024-02-28] MEDS: KETOROLAC 30 MG/ML VIAL IV (06:54)
[2024-02-28 07:20] VITALS: BP 143/81; PULSE 74; TEMP 35.5
--- NOTE | 2024-02-28 07:26 | PM.OBPRVD ---
Labor & Delivery Delivery date: 02/28/24 Intrapartal Events: Precipitous Labor < 3 hours, Acceleration and Deceleration Cervical ripening method: none Induction method: none Delivery monitor: external FHT and external uterine Route of delivery: L&D Laceration Description: None Delivery repair: other (None) Quantitative Blood Loss: 238 Anesthesia Type: None Narrative: Labor progressed well. Shasha felt the spontaneous urge to push at 0500 and pushed effectively for a short 2nd stage. FHR was category II throughout 2nd stage with deep variables while pushing. NSVB of baby at 0529 from hands and knees position, shoulders delivered easily through a single loose nuchal. Baby was placed on maternal abdomen when Shasha was ready to receive him. Apgars 9,9. They remained skin to skin while cord was cut and placenta was delivered. Placenta delivered Berrios, spontaneously with maternal efforts and appeared to be intact. 3 vessel cord clamped and cut by 22 minutes of life after cord pulsing had stopped. Cord blood collected for blood typing. Trickling bleeding after delivery of placenta. IV pitocin given for hemorrhage prevention. Medium clot expressed with fundal massage and bleeding slowed. Perineum inspected and found to be intact. Shallow periurethral lacerations noted bilaterally. Blood loss measured at 238 mL. Mom and baby left stable and is being initiated. Shasha is thrilled to meet her baby Lai. Patricia COSBY, CNM, IBCLC Baby 1: gender: Male Presentation: vertex Position: Left Occiput Anterior Placenta delivery description: Spontaneous Cord Vessel Description: 3 Vessels and Around Body x1 score (1 min): 9 score (5 min): 9 weight: 3522 kg Plan for aftercare: Routine care
[2024-02-28 10:52] VITALS: BP 143/81
[2024-02-28] MEDS: ACETAMINOPHEN 325 MG TABLET 650 MG PO (11:43)
[2024-02-28 12:54] VITALS: TEMP 37
[2024-02-28] MEDS: IBUPROFEN 600 MG TABLET PO (12:54)
[2024-02-28] MEDS: LANOLIN OINT 7 GM 1 APPLIC TOP (12:56)
[2024-02-28] MEDS: DERMOPLAST SPRAY 20% 60 ML 1 SPRAY TOP (12:57)
--- NOTE | 2024-02-28 16:53 | PM.OBDS.1 ---
Discharge Providers Provider Date of admission: 02/28/24 03:54 Discharge Date: 02/28/24 Primary care physician: Rudy Brown MD Consults: 02/28/24 04:34 Consult to Anesthesiology Urgent Comment: Consulting Provider: Anesthesiologist Reason for consultation: Epidural 02/29/24 06:17 Consult to Manager Hiv Routine Comment: Discharge provider: Hannah Fairbanks CNM Summary Hospital Course Date Patient Seen: 02/28/24 Time Patient Seen: 16:53 Diagnoses: O80 Hospital Course: Day of delivery: Routine course 11 hours s/p NSVB. Voiding, ambulating and independently. Tolerating a general diet. Minimal cramping pain is well controlled with oral medication. Vaginal bleeding is light, without clots. Eager for discharge to home as soon as possible. Has lots of help at home and is agreeable to close follow-up in clinic tomorrow. Peripartum Data Infant Delivery Method: Natural Vaginal Laceration Description: None Episiotomy description: None Procedures: O80 complications: none 1: Gender: Male Disposition of : home Discharge Diagnosis (1) Encounter for full-term uncomplicated delivery: Status: Acute Problem Details: routine early pp course Status at Discharge Cognitive/behavioral status at discharge: oriented Time Spent with Patient Time attestation: Total time spent providing and/or coordinating discharge services: Objective Labs 02/28/24 04:40 02/28/24 04:40 Labs: Laboratory Results - last 24 hr 02/28/24 04:40 WBC 16.3 H RBC 4.41 Hgb 13.0 Hct 38.0 MCV 86.2 MCH 29.5 MCHC 34.3 RDW 13.4 Plt Count 175 Neut % (Auto) 83.2 H Lymph % (Auto) 7.1 L Osborne % (Auto) 7.9 Eos % (Auto) 0.5 L Baso % (Auto) 1.3 Neut # (Auto) 87229 H Lymph # (Auto) 1200 Osborne # (Auto) 1300 H Eos # (Auto) 100 Baso # (Auto) 200 H Sodium 134 L Potassium 3.4 Chloride 108 H Carbon Dioxide 18 L BUN 9 Creatinine 0.56 Estimated GFR > 60 BUN/Creatinine Ratio 16.1 Glucose 106 H Uric Acid 4.6 Calcium 9.1 Total Bilirubin 0.5 AST 28 ALT 15 Alkaline Phosphatase 240 H Total Protein 7.5 Albumin 3.9 Globulin 3.6 Albumin/Globulin Ratio 1.1 Blood Type O Positive Antibody Screen Negative Exam Vital Signs (past 8 hours): - 02/28/24 13:00 02/28/24 13:00 Temperature 98.6 F Blood Pressure 121/73 HR 75bpm RR 18/min SpO2 97% on RA Other: fundus firm @ u-1, lochia scant rubra, perineum intact Discharge Plan Discharge Plan Patient Disposition: Home Discharge orders & Medications Prescriptions: New ibuprofen 600 mg Tablet 600 mg PO Q6HR PRN (Reason: Pain, Mild (1-3)) 14 Days Qty: 60 0RF Continued clonazepam 0.5 mg tablet 0.5 mg PO PRN PRN (Reason: Anxiety) escitalopram oxalate 5 mg tablet 5 mg PO DAILY albuterol sulfate 90 mcg/actuation HFA aerosol inhaler 2 puff INHALATION PRN PRN (Reason: Shortness Of Breath) Discontinued hydroxyzine HCl 25 mg tablet 25 mg PO BEDTIME Follow up/Referrals: Rudy Brown MD [Primary Care Provider] - Hannah Fairbanks CNM [[employer] Intern] - (Follow-up in clinic 02/29/24 @ 2:15pm Follow-up in clinic 03/11/24 @ 11:30am Follow-up in clinic 04/07/24 @ 12:45pm) Diet/Activity/Treatments Diet: Regular Activity: bed rest x 2 week, no heavy lifting for 4 weeks, pelvic rest x 6 weeks Skin/Wound/Dressing Care Report to your healthcare provider any signs of infection, such as:: chills, fever, increased pain, unusual drainage and unusual redness Visit Report/Discharge Packet Instructions: DI for Depression Stand Alone Forms: Patient Portal/API, Stroke Signs & Symptoms Discharge Data Primary Care Provider: Rudy Brown
== END 2024-02-28 19:00 | disposition home or self-care (01) | DRG 560 ==
PROVIDERS: Admitting Provider Advanced Practice Midwife; Family Provider Family Medicine; PCP Family Medicine; Referring Provider Advanced Practice Midwife; Visit Provider Advanced Practice Midwife
DX: O98.32 Other infections with a predominantly sexual mode of transmission complicating childbirth (principal); A60.9 Anogenital herpesviral infection, unspecified; O62.3 Precipitate labor; Z3A.40 40 weeks gestation of pregnancy; Z37.0 Single live birth; O76 Abnormality in fetal heart rate and rhythm complicating labor and delivery; O99.824 Streptococcus B carrier state complicating childbirth; Z03.71 Encounter for suspected problem with amniotic cavity and membrane ruled out; Z3A.39 39 weeks gestation of pregnancy
CPT/HCPCS: 36415; 59025; 59050; 80053; 84112; 84550; 85025; 86850; 86900; 86901; G0379; J1885